=== PATIENT | female | born 1940 | race Caucasian/White ===

== ENCOUNTER → 2017-11-21 09:44 | Outpatient (CLI) | payer MEDICARE, OTHER, SELFPAY ==
[2017-11-21 10:34] LABS: Absolute Neutrophil Count 2.8 X10^3/uL (2.0-7.7); Basophil# 0.02 X10^3/uL; Basophil% 0.4 % (0-1); Eosinophil# 0.11 X10^3/uL; Eosinophils% 2.4 % (0-5); Hematocrit 43.2 % (37-47); Hemoglobin 13.9 g/dl (12.0-15.0); Lymphocyte % 24.3 % (19-41); Mean Corp Hgb Conc 32.2 g/gl (32-36); Mean Corpuscular Hgb 28.7 pg (27.0-32.0); Mean Corpuscular Volume 89.3 fL (81-99); Mean Platelet Vol. 10.5 fl (6.2-12.0); Monocyte# 0.52 X10^3/uL; Monocyte% 11.5 % (0-10); Neutrophil # 2.77 X10^3/uL (2.7-7.7); Neutrophil % 61.4 % (47-70); Platelet Count 242 K/mm3 (150-450); RBC Distribution Width CV 13.3 % (11.6-14.6); RBC Distribution Width SD 43.4 fl (35.1-43.9); Red Blood Count 4.84 M/mm3 (4.2-5.4); White Blood Count 4.5 K/mm3 (4.4-11.0)
[2017-11-21 10:36] LABS: POSITIVE COUNT NO; POSITIVE DIFFERENTIAL NO; POSITIVE MORPHOLOGY NO
[2017-11-21 11:08] LABS: AST(SGOT) 21 U/L (15-37); Alanine Aminotransfer ALT/SGPT 20 U/L (13-56); Albumin, Serum 3.6 g/dL (3.2-5.0); Alkaline Phosphatase 87 U/L (45-117); Anion Gap 7 (5-15); BUN 12 mg/dL (7-18); BUN/Creat Ratio 23.8 RATIO (10-20); Calcium,Total 8.5 mg/dL (8.5-10.1); Chloride 105 mmol/L (98-107); Cholesterol 215 mg/dL (200); EST Glomerular Filtration Rate 125 mL/min (>60); Est Glom Filt Rate - Afr Amer 151 mL/min (>60); Globulin 3.7 g/dL (2.2-4.2); Glucose 88 mg/dL (74-106); High Density Lipoprotein 55 mg/dL; Protein, Total 7.3 g/dL (6.4-8.2); Sodium Level 140 mmol/L (136-145); Thyroid Stim Hormone (TSH) 2.64 uIU/mL (0.358-3.74); Triglycerides 123 mg/dL; Very Low Density Lipoprotein 25 mg/dL (5-40)
== END ==
PROVIDERS: Family Provider Nurse Practitioner; PCP Nurse Practitioner; Visit Provider Nurse Practitioner
DX: I10 Essential (primary) hypertension (principal); E03.9 Hypothyroidism, unspecified
CPT/HCPCS: 36415; 80053; 80061; 84443; 85025

== ENCOUNTER → 2020-04-01 09:44 | Outpatient (CLI) | payer MEDICARE, OTHER, SELFPAY ==
[2020-03-17 15:29] VITALS: BMI 26.9
--- NOTE | 2020-04-01 09:45 | ECHOD_ITS ---
Reason For Study: AFIB Procedure This was a 2D Doppler, Color Flow transthoracic echocardiogram. The exam was of adequate technical quality. Exam performed in department. Left Ventricle Normal LV size. Moderate concentric left ventricular hypertrophy. Left ventricular systolic function is normal. The estimated ejection fraction is 65 %. Unable to assess diastolic dysfunction. No regional wall motion abnormalities noted. Right Ventricle Normal RV size. Normal systolic function. Atria The left atrium is mildly enlarged. The right atrium is mildly enlarged. No doppler evidence for ASD. Mitral Valve There is no mitral annular calcification. Normal mitral valve. Mild (1+) mitral valve insufficiency. Tricuspid Valve Normal tricuspid valve. Mild to moderate (1-2+) tricuspid valve insufficiency. Right ventricular systolic pressure estimated to be 44 mmHg. Aortic Valve Trisinus/trileaflet aortic valve. Mild focal aortic valve calcification. Pulmonic Valve The pulmonic valve is not well visualized. Mild (1+) pulmonic valve insufficiency. Great Vessels Normal sized aortic root. Pericardium/Pleural Trivial pericardial effusion. There are no echocardiographic indications of cardiac tamponade. MMode/2D Measurements & Calculations LVIDd: 4.1 cm IVSd: 1.5 cm Ao root diam: 3.6 cm LVIDs: 3.0 cm LVPWd: 1.5 cm RVDd: 3.2 cm FS: 27.4 % LAV(MOD-bp): 50.5 ml EDV(MOD-sp4): 53.8 ml EDV(MOD-sp2): 42.9 ml LAV(MOD-bp) Indexed: 33.4 ml/m2 ESV(MOD-sp4): 23.9 ml EF(MOD-sp2): 56.5 % LAV(MOD-sp2): 40.5 ml EF(MOD-sp4): 55.6 % LAV(MOD-sp4): 52.8 ml SV(MOD-sp4): 29.9 ml SV(MOD-sp2): 24.3 ml LA A4 area: 19.3 cm2 LA dimension(2D): 3.7 cm RA A4 area: 18.1 cm2 Time Measurements MV dec time: 0.18 sec Doppler Measurements & Calculations MV E max muna: 111.2 cm/sec Ao V2 max: 140.4 cm/sec LV V1 max: 100.0 cm/sec Ao max P.9 mmHg LV V1 max P.1 mmHg PA V2 max: 80.6 cm/sec PI end-d muna: 163.6 cm/sec TR max muna: 320.3 cm/sec TR max P.1 mmHg Interpretation Summary Left ventricular systolic function is normal. The estimated ejection fraction is 65 %. Moderate concentric left ventricular hypertrophy. The left atrium is mildly enlarged. The right atrium is mildly enlarged. Mild (1+) mitral valve insufficiency. Mild to moderate (1-2+) tricuspid valve insufficiency. Mild focal aortic valve calcification. Mild (1+) pulmonic valve insufficiency. Trivial pericardial effusion. There are no echocardiographic indications of cardiac tamponade. Right ventricular systolic pressure estimated to be 44 mmHg. Unable to assess diastolic dysfunction. Ordering Physician: Margarito Ramon Referring Physician: TERRANCE CORONA Performed By: Myrna Davis, THANH, RVT
== END ==
PROVIDERS: PCP Nurse Practitioner; Referring Provider Internal Medicine Cardiovascular Disease; Visit Provider Internal Medicine Cardiovascular Disease
DX: I25.10 Atherosclerotic heart disease of native coronary artery without angina pectoris (principal); I48.91 Unspecified atrial fibrillation; I48.92 Unspecified atrial flutter; I49.1 Atrial premature depolarization; I10 Essential (primary) hypertension
CPT/HCPCS: 93306

== ENCOUNTER 2020-04-19 09:55 | Day surgery (SDC) | payer MEDICARE, OTHER, SELFPAY ==
[2020-03-17 15:29] VITALS: BMI 26.9
--- NOTE | 2020-04-17 09:36 | PCM.HP.BLA ---
History and Physical Date of Admission: 04/19/20 History of Present Illness This is an 79-year-old white female who presents for a cardioversion. She was recently noted to be in Atrial fib during an OV. She has a history of CAD with chronic RCA occlusion with [id number] collateral flow, hyperlipidemia, and hypertension with her last outpatient cardiovascular visit being on 07-24-2017 who is now found to be in atrial fibrillation. She states on Mother's Day this year she had an episode where she felt somewhat dizzy and lightheaded. She is unsure whether she noted any palpitations or rapid heart rates. She does not recall any other chest discomfort or difficulty breathing. She states because of her cardiovascular history she elected to request future outpatient cardiovascular follow-up. She does not describe any symptoms of ongoing angina pectoris. She does not describe symptoms of acute CHF or pulmonary edema. There has been no syncopal events. Intake VS: see chart Allergies lisinopril Adverse Reaction (Verified 03/17/20 15:35) cough valsartan [From Diovan] Adverse Reaction (Verified 03/17/20 15:35) cough FOR[facility] Medical History Sinus bradycardia (Acute) Premature atrial contraction (Acute) Essential hypertension (Chronic) Atherosclerotic heart disease of [place] coronary artery without angina pectoris (Chronic) History of left heart catheterization (LHC) (Resolved ~06/09/14) Surgical History History of tonsillectomy and adenoidectomy (Resolved) Family History Father Myocardial infarction, Onset Age: 67 Social History Smoking Status: Never smoker alcohol intake: never substance use type: does not use ROS Const Const: Negative for fatigue, weakness, frequent falls, excessive sweating, weight gain or weight loss Eyes Eyes: Negative for transient loss of vision, blurry vision or change in vision ENT ENT: Negative for dizziness or balance problems Cardio Chest Pain: No Palpitations: No Edema: None Resp Respiratory: Positive for SOB with activity (baseline) and wheezing (occasional); negative for SOB at rest GI GI: Negative vomiting or vomiting blood/hematemesis : Negative for hematuria Musc Musc: Negative for balance problems Skin Skin: Negative non-healing lesions or rash Neuro Neuro: Negative for dizziness, frequent falls, weakness or blurry vision Kwasi Hematologic/Lymphatic: Negative for easy bleeding Endo Endo: Negative for fatigue or excessive sweating Psych Psych: Negative for anxiety or depression Allergy Allergy/Immunology: Negative for rash Cardiology Exam Const Appearance: cooperative, healthy appearing, comfortable, well developed and well groomed Nutritional Appearance: overweight Orientation: alert, awake and oriented x3 Head Head: normal to inspection, normocephalic and atraumatic Ears: hearing grossly normal bilaterally Nose: external nose normal Face and Sinus: face symmetric Eyes Eyelids: eyelids normal Conjunctivae: conjunctivae normal Pupils: PERRL EOM: EOM intact bilaterally Neck Neck: normal visual inspection and full ROM Carotids: normal carotid upstroke Chest Chest inspection: normal inspection of the chest, symmetric chest movement and normal respiratory effort Auscultation: Bilateral: Clear to Auscultation Cardio Palpation: normal PMI Rhythm: irregular rhythm Heart sounds: S1 normal and S2 normal GI GI: normal to inspection, soft and bowel sounds present Neuro General: alert, awake, oriented x3 and moves all extremities Skin Skin: no rashes or lesions noted Extremities Pulses: Normal: Right Radial Pulse, Left Radial Pulse Lower Extremity Edema: None: Bilateral Musculoskel Musculoskeletal: joint tenderness Psych Psychological: normal affect Assessment & Plan Plan - JAQUELIN Ramirez 1. Atherosclerosis of [place] coronary artery of [place] heart without angina pectoris I25.10 Plan She does have a history of CAD. She does need to continue risk factor modification and medical management as deemed appropriate. 2. PAC (premature atrial contraction) I49.1 Plan She does have a history of PACs. Again she will continue medical management and follow-up. 3. Essential hypertension I10 Plan She does have a history of hypertension. She will continue medical therapy and follow-up with adjustment over time as needed. 4. Atrial fibrillation, unspecified type I48.91 Plan Pt will undergo a cardioversion today. She will follow up in the office accordinglly after. She will continue with her Beta Rosie and factior Xa. Supplemental Info Supplemental Information Echocardiogram: 03/2020: Left ventricular systolic function is normal. The estimated ejection fraction is 65 %. Moderate concentric left ventricular hypertrophy. The left atrium is mildly enlarged. The right atrium is mildly enlarged. Mild (1+) mitral valve insufficiency. Mild to moderate (1-2+) tricuspid valve insufficiency. Mild focal aortic valve calcification. Mild (1+) pulmonic valve insufficiency. Trivial pericardial effusion. There are no echocardiographic indications of cardiac tamponade. Right ventricular systolic pressure estimated to be 44 mmHg. Unable to assess diastolic dysfunction. EXERCISE TOLERANCE TEST: 05-04-2014 The patient underwent pharmacologic (regadenoson) evaluation with a peak heart rate of 103 beats per minute (71% predicted maximum heart rate) with a peak blood pressure of 208/100 mmHg. The baseline ECG demonstrated sinus bradycardia with nonspecific T-wave abnormality. The peak pharmacologic ECG demonstrated continued nonspecific T-wave abnormality. There was a rare PAC during recovery. There was no report of chest discomfort during pharmacologic infusion or recovery. The examination was discontinued secondary to completion of protocol. IMPRESSION: 1. Pharmacologic (regadenoson) evaluation. 2. Peak pharmacologic ECG with continued nonspecific T-wave abnormality. 3. Rare PAC during recovery. 4. Nuclear images pending. MYOCARDIAL PERFUSION IMAGING STUDY: TECHNIQUE: The patient was injected with 11.2 mCi of Tc99m Cardiolite and subsequently rest SPECT Cardiolite nuclear imaging was obtained in the horizontal long, vertical long, and short axes views. The patient underwent pharmacologic (regadenoson) evaluation with a peak heart rate of 103 beats per minute (71% predicted maximum heart rate) and a peak blood pressure of 208/100 mmHg. The patient was injected with 31.4 mCi of Tc99m Cardiolite and subsequently stress SPECT Cardiolite nuclear imaging was obtained in the horizontal long, vertical long, and short axes views. A gated Cardiolite study at peak stress was obtained. INTERPRETATION: Rest and stress SPECT Cardiolite nuclear imaging demonstrate an area of diminished to absence of tracer uptake in portions of the basal inferoseptal and basal inferior segments. This appears to be somewhat more prominent following stress as opposed to rest. There are similar type findings on the resting and stress polar map images. There is diminished end systolic thickening and brightening in the aforementioned segments. The gated Cardiolite study demonstrates diminished myocardial thickening and inward wall motion in the aforementioned segments. The reported LVEF is 60%. The aforementioned changes maybe compatible with shifting soft tissue attenuation/artifact, however, an element of previous myocardial injury/infarction with periinfarct related myocardial ischemia cannot necessarily be excluded. IMPRESSION: 1. Rest and stress SPECT Cardiolite nuclear imaging demonstrate myocardial perfusion changes potentially compatible with an element of previous myocardial injury/infarction with periinfarct related myocardial ischemia, however, an element of shifting soft tissue attenuation/artifact cannot necessarily be excluded. 2. The gated Cardiolite study reports an LVEF of 60%. On 06-09-2014 she underwent diagnostic cardiac catheterization at [facility]. At that time the left ventricle was normal with an LVEF of 65% with notation of the basal inferior segment being akinetic, the left main coronary was normal, the LAD was normal, the LCx was normal, the RCA was large and dominant with a proximal occlusion with the distal RCA system filling from left to right collateral flow. She was continued on medical management. COVID (Procedure Consent) Procedure Criteria: Yes Elective The surgeon/proceduralist and patient have discussed in detail the risk of exposure to and/or potential harm posed by the COVID-19 virus with having a surgery/procedure at this time versus the risk of delaying the surgery/procedure. It is not possible to know either the risk of delaying the surgery or procedure or chance of getting an infection with perfect accuracy, but a joint decision was made between the patient and the surgeon/proceduralist to proceed at this time with the scheduled surgery/procedure as indicated on the consent form.
[2020-04-18 11:05] VITALS: BMI 26.9
--- NOTE | 2020-04-19 11:00 | HP.PCM_ITS ---
Problem List (1) Atrial fibrillation Status: Acute History and Physical Date of Admission: 04/19/20 [facility] [place] Medical Records Department [address] [place] [address] History and Physical 04/17/20 0936 MR#: [id number] Acct: [id number] Name: POLLO SÁNCHEZ Rep #:[id number] : 1940 79 From: Leslie HAMMER PCP: RENU Lockwood [place] [facility] [place] [facility] History and Physical Date of Admission: 04/19/20 History of Present Illness This is an 79-year-old white female who presents for a cardioversion. She was recently noted to be in Atrial fib during an OV. She has a history of CAD with chronic RCA occlusion with [id number] collateral flow, hyperlipidemia, and hypertension with her last outpatient cardiovascular visit being on 07-24-2017 who is now found to be in atrial fibrillation. She states on Mother's Day this year she had an episode where she felt somewhat dizzy and lightheaded. She is unsure whether she noted any palpitations or rapid heart rates. She does not recall any other chest discomfort or difficulty breathing. She states because of her cardiovascular history she elected to request future outpatient cardiovascular follow-up. She does not describe any symptoms of ongoing angina pectoris. She does not describe symptoms of acute CHF or pulmonary edema. There has been no syncopal events. Intake VS: see chart Allergies lisinopril Adverse Reaction (Verified 03/17/20 15:35) cough valsartan [From Diovan] Adverse Reaction (Verified 03/17/20 15:35) cough PFSH Medical History Sinus bradycardia (Acute) Premature atrial contraction (Acute) Essential hypertension (Chronic) Atherosclerotic heart disease of [place] coronary artery without angina pectoris (Chronic) History of left heart catheterization (LHC) (Resolved ~06/09/14) Surgical History History of tonsillectomy and adenoidectomy (Resolved) Family History Father Myocardial infarction, Onset Age: 67 Social History Smoking Status: Never smoker alcohol intake: never substance use type: does not use ROS Const Const: Negative for fatigue, weakness, frequent falls, excessive sweating, weight gain or weight loss Eyes Eyes: Negative for transient loss of vision, blurry vision or change in vision ENT ENT: Negative for dizziness or balance problems Cardio Chest Pain: No Palpitations: No Edema: None Resp Respiratory: Positive for SOB with activity (baseline) and wheezing (occasional); negative for SOB at rest GI GI: Negative vomiting or vomiting blood/hematemesis : Negative for hematuria Musc Musc: Negative for balance problems Skin Skin: Negative non-healing lesions or rash Neuro Neuro: Negative for dizziness, frequent falls, weakness or blurry vision Kwasi Hematologic/Lymphatic: Negative for easy bleeding Endo Endo: Negative for fatigue or excessive sweating Psych Psych: Negative for anxiety or depression Allergy Allergy/Immunology: Negative for rash Cardiology Exam Const Appearance: cooperative, healthy appearing, comfortable, well developed and well groomed Nutritional Appearance: overweight Orientation: alert, awake and oriented x3 Head Head: normal to inspection, normocephalic and atraumatic Ears: hearing grossly normal bilaterally Nose: external nose normal Face and Sinus: face symmetric Eyes Eyelids: eyelids normal Conjunctivae: conjunctivae normal Pupils: PERRL EOM: EOM intact bilaterally Neck Neck: normal visual inspection and full ROM Carotids: normal carotid upstroke Chest Chest inspection: normal inspection of the chest, symmetric chest movement and normal respiratory effort Auscultation: Bilateral: Clear to Auscultation Cardio Palpation: normal PMI Rhythm: irregular rhythm Heart sounds: S1 normal and S2 normal GI GI: normal to inspection, soft and bowel sounds present Neuro General: alert, awake, oriented x3 and moves all extremities Skin Skin: no rashes or lesions noted Extremities Pulses: Normal: Right Radial Pulse, Left Radial Pulse Lower Extremity Edema: None: Bilateral Musculoskel Musculoskeletal: joint tenderness Psych Psychological: normal affect Assessment & Plan Plan - JAQUELIN Ramirez 1. Atherosclerosis of [place] coronary artery of [place] heart without angina pectoris I25.10 Plan She does have a history of CAD. She does need to continue risk factor modification and medical management as deemed appropriate. 2. PAC (premature atrial contraction) I49.1 Plan She does have a history of PACs. Again she will continue medical management and follow-up. 3. Essential hypertension I10 Plan She does have a history of hypertension. She will continue medical therapy and follow-up with adjustment over time as needed. 4. Atrial fibrillation, unspecified type I48.91 Plan Pt will undergo a cardioversion today. She will follow up in the office accordinglly after. She will continue with her Beta Rosie and factior Xa. Supplemental Info Supplemental Information Echocardiogram: 03/2020: Left ventricular systolic function is normal. The estimated ejection fraction is 65 %. Moderate concentric left ventricular hypertrophy. The left atrium is mildly enlarged. The right atrium is mildly enlarged. Mild (1+) mitral valve insufficiency. Mild to moderate (1-2+) tricuspid valve insufficiency. Mild focal aortic valve calcification. Mild (1+) pulmonic valve insufficiency. Trivial pericardial effusion. There are no echocardiographic indications of cardiac tamponade. Right ventricular systolic pressure estimated to be 44 mmHg. Unable to assess diastolic dysfunction. EXERCISE TOLERANCE TEST: 05-04-2014 The patient underwent pharmacologic (regadenoson) evaluation with a peak heart rate of 103 beats per minute (71% predicted maximum heart rate) with a peak blood pressure of 208/100 mmHg. The baseline ECG demonstrated sinus bradycardia with nonspecific T-wave abnormality. The peak pharmacologic ECG demonstrated continued nonspecific T- wave abnormality. There was a rare PAC during recovery. There was no report of chest discomfort during pharmacologic infusion or recovery. The examination was discontinued secondary to completion of protocol. IMPRESSION: 1. Pharmacologic (regadenoson) evaluation. 2. Peak pharmacologic ECG with continued nonspecific T-wave abnormality. 3. Rare PAC during recovery. 4. Nuclear images pending. MYOCARDIAL PERFUSION IMAGING STUDY: TECHNIQUE: The patient was injected with 11.2 mCi of Tc99m Cardiolite and subsequently rest SPECT Cardiolite nuclear imaging was obtained in the horizontal long, vertical long, and short axes views. The patient underwent pharmacologic (regadenoson) evaluation with a peak heart rate of 103 beats per minute (71% predicted maximum heart rate) and a peak blood pressure of 208/100 mmHg. The patient was injected with 31.4 mCi of Tc99m Cardiolite and subsequently stress SPECT Cardiolite nuclear imaging was obtained in the horizontal long, vertical long, and short axes views. A gated Cardiolite study at peak stress was obtained. INTERPRETATION: Rest and stress SPECT Cardiolite nuclear imaging demonstrate an area of diminished to absence of tracer uptake in portions of the basal inferoseptal and basal inferior segments. This appears to be somewhat more prominent following stress as opposed to rest. There are similar type findings on the resting and stress polar map images. There is diminished end systolic thickening and brightening in the aforementioned segments. The gated Cardiolite study demonstrates diminished myocardial thickening and inward wall motion in the aforementioned segments. The reported LVEF is 60%. The aforementioned changes maybe compatible with shifting soft tissue attenuation/artifact, however, an element of previous myocardial injury/infarction with periinfarct related myocardial ischemia cannot necessarily be excluded. IMPRESSION: 1. Rest and stress SPECT Cardiolite nuclear imaging demonstrate myocardial perfusion changes potentially compatible with an element of previous myocardial injury/infarction with periinfarct related myocardial ischemia, however, an element of shifting soft tissue attenuation/artifact cannot necessarily be ex cluded. 2. The gated Cardiolite study reports an LVEF of 60%. On 06-09-2014 she underwent diagnostic cardiac catheterization at [facility]. At that time the left ventricle was normal with an LVEF of 65% with notation of the basal inferior segment being akinetic, the left main coronary was normal, the LAD was normal, the LCx was normal, the RCA was large and dominant with a proximal occlusion with the distal RCA system filling from left to right collateral flow. She was continued on medical management. COVID (Procedure Consent) Procedure Criteria: Yes Elective The surgeon/proceduralist and patient have discussed in detail the risk of exposure to and/or potential harm posed by the COVID-19 virus with having a surgery/procedure at this time versus the risk of delaying the surgery/procedure. It is not possible to know either the risk of delaying the surgery or procedure or chance of getting an infection with perfect accuracy, but a joint decision was made between the patient and the surgeon/proceduralist to proceed at this time with the scheduled surgery/procedure as indicated on the consent form. Date _ Leslie Martinez Signature: Date (if applicable) I have re-examined the patient. There are no clinical changes since date of exam.
--- NOTE | 2020-04-19 12:00 | CARDIOVERS_ITS ---
Cardioversion Cardioversion: Date: 04-19-2020 Procedure: Synchronized Biphasic DC Cardioversion Indications: Atrial fibrillation Consent: Per the Patient Anesthesia: per Dr. Martinez of pulmonology and critical care medicine with profile 40 mg IV push total Procedure: Synchronized Biphasic DC Cardioversion: 200 J x1: Result: Sinus rhythm; PACs Complications: no apparent complications This note was generated with [employer] software. It may contain incorrect words, spelling, and punctuation that were not noted in checking the note before signing.
--- NOTE | 2020-04-19 12:30 | PCM.OP.PRO ---
Problem List (1) Atrial fibrillation Status: Acute (2) Premature atrial contraction Status: Acute (3) Atherosclerotic heart disease of [place] coronary artery without angina pectoris Status: Chronic Qualifiers: [place] vs. transplanted heart: [place] heart Qualified Code(s): I25.10 - Atherosclerotic heart disease of [place] coronary artery without angina pectoris (4) Cholecystitis Status: Chronic (5) Essential hypertension Status: Chronic (6) Hypothyroidism Status: Chronic Procedure Report Date of Procedure: 04/19/20 - Conscious sedation CONSCIOUS SEDATION REPORT BRIEF HISTORY OF PRESENT ILLNESS: The patient is an 79-year-old female who presented to [facility] for an elective outpatient cardioversion due to underlying atrial fibrillation. The patient reports no PO intake since midnight. The patient does not have a history of obstructive sleep apnea. The patient reports no history of smoking and COPD. The patient denies any recent constitutional symptoms such as fevers, chills, nausea or vomiting. The patient denies previous anesthetic complications. Patient's last known ejection fraction was 65% and patient took Eliquis on the day of the procedure. PHYSICAL EXAMINATION: VITAL SIGNS: Reviewed and were acceptable. GENERAL: The patient is a female, in no apparent distress, speaking in full sentences. HEENT: Normocephalic, atraumatic. Mucous membranes are moist and pink. Good mouth opening noted. Trachea is midline. Good neck mobility. MP II CHEST: S1, S2 irregularly irregular. No murmurs, rubs or gallops were noted. LUNGS: Clear to auscultation bilaterally without appreciable wheezes, rales or rhonchi. ABDOMEN: Soft, nontender, nondistended. Positive bowel sounds. EXTREMITIES: There is no clubbing, cyanosis or edema. ASA Class: II DESCRIPTION OF PROCEDURE: After confirmation of informed consent, the patient's anesthesia plan was reviewed in detail. Propofol was chosen. Risks and benefits were reviewed and the patient agreed to proceed. At 11:42 AM, the patient was given 40 mg of propofol. The patient achieved an appropriate level of sedation and received 1 attempt synchronized cardioversion, at [address] Ramon at the bedside. This was successful in achieving normal sinus rhythm. The patient was monitored until 11:54 AM, at which time the patient reached their baseline mental status and function. The patient tolerated the procedure well. COMPLICATIONS: None ESTIMATED BLOOD LOSS: None RECOMMENDATIONS: Okay to recover in usual fashion. [id number]: Other Procedure See Report - [id number]
== END 2020-04-19 13:24 | disposition home or self-care (01) ==
LOC: CLSP 09:58
PROVIDERS: PCP Nurse Practitioner; Referring Provider Internal Medicine Cardiovascular Disease; Visit Provider Internal Medicine Cardiovascular Disease
DX: I48.91 Unspecified atrial fibrillation (principal); I25.10 Atherosclerotic heart disease of native coronary artery without angina pectoris; I49.1 Atrial premature depolarization; I11.9 Hypertensive heart disease without heart failure; I08.1 Rheumatic disorders of both mitral and tricuspid valves; E78.5 Hyperlipidemia, unspecified; E03.9 Hypothyroidism, unspecified
CPT/HCPCS: 92960; 93005; J7040

== ENCOUNTER → 2022-05-09 | Outpatient (CLI) | payer MEDICARE, OTHER, SELFPAY | END | disposition home or self-care (01) | PROVIDERS: PCP Nurse Practitioner; Visit Provider Nurse Practitioner Family | DX: R30.0 Dysuria (principal) | CPT/HCPCS: 87086; 87088 ==

== ENCOUNTER → 2022-12-19 | Outpatient (CLI) | payer MEDICARE, SELFPAY | END | disposition home or self-care (01) | LOC: PSN 11:40 | PROVIDERS: PCP Nurse Practitioner Family; Visit Provider Nurse Practitioner Gerontology | DX: R00.0 Tachycardia, unspecified (principal); I48.0 Paroxysmal atrial fibrillation; I49.1 Atrial premature depolarization | CPT/HCPCS: 93225; 93226 ==

== ENCOUNTER → 2022-12-25 | Outpatient (CLI) | payer MEDICARE, SELFPAY ==
--- NOTE | 2022-12-25 16:40 | RAD_ITS ---
STUDY: X-RAY CHEST REASON FOR EXAM: Female, 82 years old. Cough and wheezing. TECHNIQUE: Frontal and lateral views of the chest. COMPARISON: August 2017. FINDINGS: Improved aeration of both bases since the prior study. Patchy opacity in the right middle lobe remains. There is no demonstrated pleural abnormality. Cardiomegaly unchanged. Normal mediastinum and claudia. Normal visualized pulmonary arteries. Aortic tortuosity with calcification unchanged. Normal visualized thoracic spine. Normal visualized ribs, clavicles, and shoulders. There is no demonstrated abnormality of the visualized soft tissue structures of the upper abdomen. RAD/Chest PA and Lateral IMPRESSION: Cardiomegaly with decreased opacities at both bases. Patchy right middle lobe opacity remains. No acute abnormality. Electronically Signed: Edwardo Kumar, at 10:58 EDT ,
== END | disposition home or self-care (01) ==
LOC: MTRAD 16:36
PROVIDERS: PCP Nurse Practitioner Family; Referring Provider Nurse Practitioner Family; Visit Provider Nurse Practitioner Family
DX: R05.9 Cough, unspecified (principal); R06.2 Wheezing
CPT/HCPCS: 71046

== ENCOUNTER → 2023-02-16 | Outpatient (CLI) | payer MEDICARE, SELFPAY ==
--- NOTE | 2023-02-16 12:01 | RAD_ITS ---
ACR Level 3 findings have been noted. An addendum which confirms receipt of the report will follow. INDICATION: SOB AND COUGH X SEVERAL MO EXAMINATION/TECHNIQUE: X-RAY - XR Chest 2 Views COMPARISON: 12/25/2022 FINDINGS: LINES/DEVICES: None. LUNGS: Patchy airspace opacity in the right lower lung field with new nodular opacity along the left heart border in the lower lung field. No consolidations or pleural effusions. No vascular congestion. MEDIASTINUM AND CARDIOVASCULAR STRUCTURES: Stable cardiomegaly. BONES AND SOFT TISSUES: No acute changes. RAD/Chest PA and Lateral IMPRESSION: Patchy infiltrate in the right lower lung field. Possible pulmonary nodule versus nodular infiltrate along the left heart border. Recommend short-term follow-up for resolution. If no resolution within clinically expected time frame follow-up chest CT with contrast is recommended. Electronically Signed: Thuan Price MD at 17:47 EDT ,
== END | disposition home or self-care (01) ==
LOC: RAD 11:56
PROVIDERS: PCP Nurse Practitioner Family; Referring Provider Nurse Practitioner Family; Visit Provider Nurse Practitioner Family
DX: R06.02 Shortness of breath (principal); R05.9 Cough, unspecified
CPT/HCPCS: 71046

== ENCOUNTER → 2023-03-15 | Outpatient (CLI) | payer MEDICARE, SELFPAY ==
--- NOTE | 2023-03-15 15:11 | CT_ITS ---
EXAM: CT chest with contrast HISTORY: ABN CHEST XRAY TECHNIQUE: CT Chest W/ Contrast Injection A radiation dose optimization technique was used for this scan. Multiplanar reconstructions were obtained. 3-D postprocessing was performed. COMPARISON: CTA chest August 28, 2017. Chest x-ray February 16, 2023 LIMITATIONS: None. LUNGS: Small patchy irregular opacities are present bilaterally. Atelectasis/scarring is in the lingula which accounts for the nodular opacity described in the prior chest x-ray report. No suspicious pulmonary nodules identified. PULMONARY VESSELS: No pulmonary emboli identified. PLEURA: Normal. MEDIASTINUM: Calcified mediastinal and hilar lymph nodes are evidence of prior granulomatous disease.. HEART: Mildly enlarged. Trace pericardial effusion. AORTA: No thoracic aortic aneurysm or dissection. UPPER ABDOMEN: Calcified splenic granulomata. A 1.2 cm left adrenal nodule is similar in size to the prior exam and measures 40 Hounsfield units. BONES/SOFT TISSUES: No acute fracture. OTHER: None. CONCLUSION: Small patchy irregular opacities bilaterally likely represent atelectasis/scarring. Superimposed mild infection is a consideration in the appropriate clinical setting. Nodular opacity in the lingula represents atelectasis/scarring and accounts for the chest x-ray abnormality. No suspicious pulmonary nodules. 1.2 cm indeterminate adrenal nodule. Electronically Signed: Hardy Conte MD at 23:49 EDT , CT/Chest WITH Contrast IMPRESSION: undefined
[2023-03-15 15:27] LABS: CREATININE FINGERSTICK 0.9 mg/dL (0.55-1.02); EGFR FINGERSTICK > 60.0000 mL/min (>60)
== END | disposition home or self-care (01) ==
LOC: CT 14:50
PROVIDERS: PCP Nurse Practitioner Family; Referring Provider Nurse Practitioner Family; Visit Provider Nurse Practitioner Family
DX: R91.8 Other nonspecific abnormal finding of lung field (principal)
CPT/HCPCS: 71260; Q9967; A4216

== ENCOUNTER → 2023-04-16 | Outpatient (CLI) | payer MEDICARE, SELFPAY ==
--- NOTE | 2023-04-16 13:04 | PFTCOMP_ITS ---
COMPLETE PULMONARY FUNCTION TEST INTERPRETATION Brief HPI: Patient is an 82-year-old female, currently under the care of myself, who presents to [facility] for complete pulmonary function tests secondary to diagnosis of chronic cough. Respiratory therapist reports good effort and reproducible results. Interpretation: Forced expiration spirometry shows a mild large airways obstructive ventilatory defect with an FEV1 of 83% predicted. There is a significant bronchodilator response in FEV1 by strict ATS criteria. Spirograms are of good quality and plateau slowly, indicating slowly emptying areas of the lungs. The respiratory flow volume loop shows decreased expiratory flow rates at high lung volumes consistent with small airways obstruction. Lung volumes by body plethysmography show a normal total lung capacity at 3.46 L, 88% predicted. All other lung volumes are within normal limits. Diffusion capacity by carbon monoxide is normal at 76% predicted. The airway resistance is elevated. No previous pulmonary function tests were available for review. Impression: Partially reversible mild large airways obstructive ventilatory defect with preserved lung volumes and diffusion capacity
== END | disposition home or self-care (01) ==
LOC: PSN 10:37
PROVIDERS: PCP Nurse Practitioner Family; Referring Provider Internal Medicine Critical Care Medicine; Visit Provider Internal Medicine Critical Care Medicine
DX: R05.3 Chronic cough (principal)
CPT/HCPCS: 94060; 94726; 94729

== ENCOUNTER → 2023-06-18 | Outpatient (CLI) | payer MEDICARE, SELFPAY ==
[2023-06-18 14:16] LABS: Absolute Neutrophil Count 3.5 X10^3/uL (2.0-7.7); Basophil# 0.04 X10^3/uL; Basophil% 0.8 % (0-1); Eosinophil# 0.05 X10^3/uL; Hematocrit 44.2 % (37-47); Hemoglobin 14.4 g/dL (12.0-15.0); Lymphocyte % 21.3 % (19-41); Mean Corp Hgb Conc 32.6 g/dL (32-36); Mean Corpuscular Hgb 29.3 pg (27.0-32.0); Mean Corpuscular Volume 89.8 fL (81-99); Mean Platelet Vol. 10.8 fl (6.2-12.0); Monocyte# 0.48 X10^3/uL; Monocyte% 9.3 % (0-10); NRBC Flagged by Analyzer 0 % (0-5); Neutrophil # 3.47 X10^3/uL (2.7-7.7); Neutrophil % 67.2 % (47-70); Platelet Count 239 K/mm3 (150-450); RBC Distribution Width CV 13.5 % (11.6-14.6); RBC Distribution Width SD 44.3 fl (35.1-43.9); Red Blood Count 4.92 M/mm3 (4.2-5.4); White Blood Count 5.2 K/mm3 (4.4-11.0)
[2023-06-18 14:50] LABS: Anion Gap 6 (5-15); BUN 15 mg/dL (7-18); BUN/Creat Ratio 19.2 RATIO (10-20); Calcium,Total 9.3 mg/dL (8.5-10.1); Chloride 105 mmol/L (98-107); Creatinine, Serum 0.78 mg/dL (0.55-1.02); EST Glomerular Filtration Rate 74 mL/min (>60); Est Glom Filt Rate - Afr Amer 90 mL/min (>60); Glucose 136 mg/dL (74-106); Potassium 3.8 mmol/L (3.5-5.1); Sodium Level 140 mmol/L (136-145); Thyroid Stim Hormone (TSH) 2.06 uIU/mL (0.358-3.74)
== END | disposition home or self-care (01) ==
LOC: LAB 13:28
PROVIDERS: PCP Nurse Practitioner Family; Referring Provider Physician Assistant Medical; Visit Provider Physician Assistant Medical
DX: I48.0 Paroxysmal atrial fibrillation (principal); I10 Essential (primary) hypertension; I25.10 Atherosclerotic heart disease of native coronary artery without angina pectoris; R42 Dizziness and giddiness; R06.09 Other forms of dyspnea
CPT/HCPCS: 36415; 80048; 83880; 84443; 85025

== ENCOUNTER → 2023-07-16 | Outpatient (CLI) | payer MEDICARE, SELFPAY ==
--- NOTE | 2023-07-16 07:08 | ECHOD_ITS ---
Reason For Study: DYSPNEA Procedure This was a 2D Doppler, Color Flow transthoracic echocardiogram. Exam performed in department. Left Ventricle Normal LV size. The estimated ejection fraction is 60 %. Infero-Basal: Akinetic. There are regional wall motion abnormalities as specified. Right Ventricle Normal RV size. Normal systolic function. Mitral Valve Normal mitral valve. Mild (1+) eccentric mitral valve insufficiency. Tricuspid Valve Normal tricuspid valve. Moderate (2+) tricuspid valve insufficiency. Pulmonary artery systolic pressure is 64 mmHg. Aortic Valve Trisinus/trileaflet aortic valve. Mild (1+) aortic valve insufficiency. Pulmonic Valve Normal pulmonic valve. Mild (1+) pulmonic valve insufficiency. Great Vessels Normal aortic root. Pericardium/Pleural No pericardial effusion. MMode/2D Measurements & Calculations LVIDd: 3.3 cm IVSd: 1.6 cm Ao root diam: 3.4 cm LVIDs: 2.6 cm LVPWd: 1.4 cm FS: 22.6 % LAV(MOD-bp): 57.8 ml LVAd ap4: 17.7 cm2 SV(MOD-sp4): 24.6 ml LAV(MOD-bp) Indexed: 38.6 ml/m2 LVLd ap4: 6.4 cm LAV(MOD-sp2): 75.2 ml EDV(MOD-sp4): 41.2 ml LAV(MOD-sp4): 44.4 ml EDV(sp4-el): 41.1 ml LVAs ap4: 9.8 cm2 LVLs ap4: 5.6 cm ESV(MOD-sp4): 16.6 ml ESV(sp4-el): 14.6 ml EF(MOD-sp4): 59.7 % EF(sp4-el): 64.5 % SV(sp4-el): 26.5 ml LA dimension(2D): 4.0 cm LA A4 area: 18.3 cm2 RA A4 area: 18.3 cm2 TAPSE: 1.1 cm Doppler Measurements & Calculations MV E max muna: 90.4 cm/sec MV V2 max: 127.4 cm/sec Ao V2 max: 126.7 cm/sec MV max P.5 mmHg Ao max P.4 mmHg MV V2 mean: 67.2 cm/sec Ao V2 mean: 88.8 cm/sec MV mean P.2 mmHg Ao mean P.6 mmHg MV V2 VTI: 25.5 cm Ao V2 VTI: 26.7 cm AV (velocity ratio): 0.74 AI max muna: 396.1 cm/sec LV V1 max: 107.8 cm/sec PA V2 max: 98.0 cm/sec AI max P.7 mmHg LV V1 max P.7 mmHg PA V2 mean: 75.9 cm/sec LV V1 mean P.6 mmHg AI dec slope: 185.1 cm/sec2 LV V1 mean: 74.9 cm/sec AI P1/2t: 626.8 msec LV V1 VTI: 19.7 cm TR max muna: 382.2 cm/sec TR max P.4 mmHg ECHO/Echo Complete Interpretation Summary The estimated ejection fraction is 60 %. Normal LV size. There are regional wall motion abnormalities as specified. Infero-Basal: Akinetic. Mild (1+) eccentric mitral valve insufficiency. Mild (1+) aortic valve insufficiency. Ordering Physician: Leslie Infante Referring Physician: Leslie Infante Performed By: Genesis Russell RCS
--- NOTE | 2023-07-16 17:45 | STRESSREP ---
Stress Test Report Pharmacologic myocardial perfusion stress test. 82-year-old lady with a history of coronary artery disease Resting EKG demonstrates atrial fibrillation with a rate of 100 bpm. Resting blood pressure is 160/90 mmHg. 0.4 mg of regadenoson was infused per usual protocol followed by rapid intravenous saline flush injection. Continuous EKG monitoring was performed. The maximum heart rate was 142 bpm which was 104% of max impacted heart rate the maximum workload was 1 metabolic equivalent. At rest there were no ST or T wave changes noted to suggest ischemia and at peak infusion nonspecific ST changes were noted which did not meet the criteria for ischemia. No clinical angina is noted. The final blood pressure was 150/82 mmHg. Myocardial perfusion protocol. 11 mCi of technetium 99m sestamibi was injected at rest. 0.4 mg of regadenoson was infused per usual protocol. At peak infusion 33 mCi of technetium 99m sestamibi was injected stress images were obtained stress and rest images were reconstructed and compared in the short axis vertical long and horizontal long axis. Gated images were also obtained. Perfusion SPECT analysis: Review of the stress images demonstrate normal uptake of tracer noted in all areas of the myocardium except for a medium size zone in the mid inferior and inferolateral segment with a perfusion defect. The resting images similar demonstrated normal uptake of tracer noted in all areas of the myocardium except for the same area. The above is suggestive of a previous inferior inferolateral infarct. No significant ischemia is noted. Gated SPECT analysis: The gated ejection fraction is 67%. Conclusion: Pharmacologic myocardial perfusion stress test with no ischemia noted. Previous inferolateral infarct present. Preserved ejection fraction.
== END | disposition home or self-care (01) ==
LOC: CVS 07:06
PROVIDERS: PCP Nurse Practitioner Family; Referring Provider Physician Assistant Medical; Visit Provider Physician Assistant Medical
DX: I48.0 Paroxysmal atrial fibrillation (principal); I25.10 Atherosclerotic heart disease of native coronary artery without angina pectoris; I10 Essential (primary) hypertension; R06.09 Other forms of dyspnea; R42 Dizziness and giddiness
CPT/HCPCS: 78452; 93017; 93306; A9500; A4216; J2785

== ENCOUNTER 2023-08-28 17:48 | Emergency (ER) | payer MEDICARE, SELFPAY ==
[2023-08-28 17:49] VITALS: BP 180/95; PULSE 111; RESP 16; TEMP 36.4; O2SAT 96; BMI 25.7
--- NOTE | 2023-08-28 17:56 | RAD_ITS ---
STUDY: X-RAY - RIGHT HAND REASON FOR EXAM: Female, 82 years old. Swelling TECHNIQUE: 3 view(s) of the hand. COMPARISON: None. FINDINGS: Normal radiocarpal articulation. Normal distal radioulnar joint. Normal visualized carpal bones. Normal carpal articulations Normal carpometacarpal articulation of the thumb. Normal second through fifth carpometacarpal joints. Normal metacarpi. Normal metacarpophalangeal joint of the thumb. Normal interphalangeal joint of the thumb. Normal proximal and distal phalanges of the thumb. There is degenerative arthrosis of the metacarpophalangeal (MCP) joints. There is calcification adjacent to the second and the peak drain. There is diffuse articular joint space narrowing of the proximal and distal interphalangeal joints of the second through fifth fingers, with spurring and small cysts. Normal phalanges of the second through fifth fingers. The soft tissue structures are unremarkable. There is no acute fracture seen. RAD/Hand Min 3 Views IMPRESSION: Degenerative joint disease of the hand, as described above. Electronically Signed: Alexander Goldsmith MD at 18:26 EST ,
[2023-08-28 19:00] VITALS: BP 166/86; PULSE 116; RESP 16; TEMP 36.4; O2SAT 96
[2023-08-28 19:52] VITALS: BP 171/103; PULSE 89; RESP 20; O2SAT 96
--- NOTE | 2023-08-28 20:07 | EX.ED.UPPERE ---
HPI History of Present Illness HPI Narrative: Patient presents with redness and swelling to her right hand that began several days ago. Patient states he started having some pain approximately week and a half ago. Patient states her pain is constant. Patient describes it as burning and throbbing. Patient states it is worse with movement. Patient admits to some weakness in her hand but states it is due to the pain. Patient denies any paresthesias. Patient denies any trauma or injury. Patient denies any fevers or chills. Chief Complaint: Upper Extremity Injury Informant: patient and family Onset/Context/Timing Onset: Days Context: Gradual Onset Timing: Continuous Quality of Pain: Burning and Throbbing Worsened by: Movement Relieved by: Nothing Associated Symptoms Associated Symptoms: Negative for Parasthesia, Weakness or Loss of Funtion PFSH [facility] Medical History Atherosclerotic heart disease of [place] coronary artery without angina pectoris Atrial fibrillation Essential hypertension History of left heart catheterization (LHC) (~06/09/14) Polyneuropathy, unspecified Premature atrial contraction Sinus bradycardia Vitamin D deficiency Home Medications levothyroxine 75 mcg tablet 75 mcg PO DAILY thyroid 06/08/14 [History Last Taken 08/27/17 22:00 75 MCG] vitamin B complex (Super B-50 Complex capsule) 1 cap PO DAILY 12/07/20 [History Last Taken Unknown] turmeric root extract 500 mg capsule 500 mg PO DAILY 04/05/21 [History Last Taken Unknown] apixaban 2.5 mg tablet (Eliquis) 2.5 mg PO BID #180 tabs 01/10/22 [Rx Last Taken Unknown] dietary supplement 1 tab PO DAILY 03/20/23 [History Last Taken Unknown] amlodipine 2.5 mg tablet 2.5 mg PO DAILY #90 tabs 04/12/23 [Rx Last Taken Unknown] carvedilol 3.125 mg tablet 3.125 mg PO DAILY blood pressure/heart #90 tabs 04/12/23 [Rx Last Taken Unknown] losartan 25 mg tablet 12.5 mg (1/2 x 25 mg) PO DAILY blood pressure #90 tabs 06/17/23 [Rx Last Taken Unknown] furosemide 20 mg tablet (Lasix) 20 mg PO DAILY PRN edema #90 tabs 07/17/23 [Rx Last Taken Unknown] cephalexin 500 mg capsule 500 mg PO Q6 #40 CAPSULES 08/28/23 [Rx Last Taken Unknown] Allergy/AdvReac Type Severity Reaction Status Date / Time lisinopril AdvReac cough Verified 06/18/23 11:27 valsartan [From Diovan] AdvReac cough Verified 06/18/23 11:27 Family History Father Myocardial infarction, Onset Age: 67 Mother Cancer Surgical History History of cardioversion (~04/19/20) History of cholecystectomy (08/26/17) History of tonsillectomy and adenoidectomy Social History Smoking Status: Never smoker alcohol intake: current alcohol intake frequency: holidays/special occasions only substance use type: does not use ROS ROS ED Constitutional Constitutional ED: Denies chills or fever(s) Eyes Eyes: Denies blurry vision or change in vision ENT ENT ED: Denies rhinorrhea or sore throat Cardiovascular Cardiovascular: Denies chest pain or palpitations Respiratory/Chest Respiratory/Chest: Denies cough or dyspnea Gastrointestinal Gastrointestinal: Denies nausea or vomiting Genitourinary Genitourinary ED: Denies dysuria or hematuria Musculoskeletal Musculoskeletal: Denies back pain or neck pain Integumentary Denies abscess or rash Neurologic Neurologic: Denies headache(s) or weakness Allergic/Immunologic Allergic/Immunologic ED: Denies mouth swelling or urticaria EXAM Physical Exam Const Vital Signs: 08/28/23 17:49 Temperature 97.5 F L Temperature Source Temporal Pulse Rate 111 H Respiratory Rate 16 Blood Pressure 180/95 H Blood Pressure Mean 123 Pulse Ox 96 Oxygen Delivery Method Room Air Positive well nourished and well developed General Appearance ED: well developed and NAD HEENT Reports moist mucous membranes normocephalic Neck full ROM and supple Resp normal respiratory effort and clear to auscultation bilaterally Cardio regular rate and regular rhythm GI non-tender and non-distended Palpation: soft Extremity Extremity Narrative: There is tenderness, edema, and erythema over the dorsal aspect of the right hand extending into the third proximal phalanx. There is mild warmth. There is no discharge or drainage. There is no evidence of any abscess. There are no vesicles or pustules noted. There are no petechia noted. Sensation was intact to light touch in the radial, median, and ulnar areas. Strength is 5/5 in the radial, median, and ulnar areas. Capillary refill was less than 2 seconds in all digits. Radial pulses are equal bilaterally. General Extremety ED: Yes edema General Extremity: edema Neuro oriented x3, CN's II-XII intact bilaterally, moves all extremities, no focal motor deficits and no sensory deficits noted Sensorium / Orientation: alert Motor Exam: strength 5/5 throughout Psych mental status grossly normal MDM MDM MDM Narrative Medical decision making narrative: Differential diagnosis includes cellulitis, osteomyelitis, and occult fracture. X-rays of the left hand will be obtained to assess for occult fracture and osteomyelitis. CBC will be obtained to assess for leukocytosis and anemia. Basic metabolic profile will be obtained to assess for electrolyte abnormality and renal function. Lactate will be obtained to assess for sepsis. Blood cultures will be obtained to assess for sepsis. Lab Data Attestation: I reviewed the patient's lab results. Lab results narrative: CBC was reviewed and was within normal limits. Basic metabolic profile was reviewed. Potassium was slightly low at 3.3. Glucose was slightly elevated at 119. Remainder is within normal limits. Lactate was reviewed and was normal at 0.9. Radiography Diagnostic Testing: Clinical Impression(s) from Imaging Studies Hand X-Ray 08/28/23 17:56 IMPRESSION: Degenerative joint disease of the hand, as described above. Electronically Signed: Alexander Goldsmith MD at 18:26 [facility] , X-rays of the right hand were obtained. There are 3 views. On my independent interpretation, there is no acute fracture. There are some degenerative changes noted. There is no evidence of osteomyelitis. Radiologist also interpreted the x-rays and agrees. Treatment and Re-Evaluation Narrative: Patient was given a dose of Ancef here. Patient and family were advised of her findings. Patient was given a prescription for Keflex. Patient was instructed to keep her hand elevated. Patient was instructed to follow-up with her primary care physician in 5 to 7 days. Patient was instructed to take Tylenol or ibuprofen as needed for pain. Patient and family understood and were agreeable with the plan. All questions were answered. Discharge Plan Triage Chief Complaint: Upper Extremity Injury ED Provider: Figueroa Tucker Dx/Rx/DC Orders Clinical Impression: Cellulitis of right hand, Essential hypertension Instructions: ED Cellulitis Prescriptions: New cephalexin [cephalexin] 500 mg capsule 500 mg PO Q6 Qty: 40 0RF No Action turmeric root extract 500 mg capsule 500 mg PO DAILY vitamin B complex [Super B-50 Complex] Capsule 1 cap PO DAILY dietary supplement Tablet 1 tab PO DAILY Rx Instructions: Strong lung furosemide [Lasix] 20 mg tablet 20 mg PO DAILY PRN (Reason: edema) Qty: 90 3RF levothyroxine 75 MCG tablet 75 mcg PO DAILY Patient Comments: choose one day a week to not take Eliquis 2.5 mg tablet 2.5 mg PO BID Qty: 180 3RF carvedilol 3.125 mg tablet 3.125 mg PO DAILY Qty: 90 3RF amlodipine 2.5 mg tablet 2.5 mg PO DAILY Qty: 90 3RF losartan 25 mg tablet 12.5 mg PO DAILY Qty: 90 3RF Primary Care Provider: Taisha Doyle Referrals: Taisha Doyle NP-C [Primary Care Provider] - 5-7 Days Disposition Disposition: Home, Self Care
[2023-08-28 20:25] LABS: Absolute Lymphocyte Count 0.91 X10^3/uL (0.83-4.51); Absolute Neutrophil Count 6.5 X10^3/uL (2.0-7.7); Basophil# 0.03 X10^3/uL; Basophil% 0.4 % (0-1); Eosinophil# 0.01 X10^3/uL; Eosinophils% 0.1 % (0-5); Hematocrit 43.1 % (37-47); Hemoglobin 14.2 g/dL (12.0-15.0); Lymphocyte # 0.91 X10^3/ul (0.83-4.51); Lymphocyte % 10.8 % (19-41); Mean Corp Hgb Conc 32.9 g/dL (32-36); Mean Corpuscular Hgb 29.5 pg (27.0-32.0); Mean Corpuscular Volume 89.4 fL (81-99); Mean Platelet Vol. 10.5 fl (6.2-12.0); Monocyte% 11.9 % (0-10); NRBC Flagged by Analyzer 0 % (0-5); Neutrophil # 6.45 X10^3/uL (2.7-7.7); Neutrophil % 76.6 % (47-70); Platelet Count 250 K/mm3 (150-450); RBC Distribution Width CV 12.5 % (11.6-14.6); RBC Distribution Width SD 41.1 fl (35.1-43.9); Red Blood Count 4.82 M/mm3 (4.2-5.4); White Blood Count 8.4 K/mm3 (4.4-11.0)
[2023-08-28 20:46] LABS: Anion Gap 5 (5-15); BUN 13 mg/dL (7-18); BUN/Creat Ratio 15.3 RATIO (10-20); Chloride 104 mmol/L (98-107); Creatinine, Serum 0.85 mg/dL (0.55-1.02); EST Glomerular Filtration Rate 68 mL/min (>60); Est Glom Filt Rate - Afr Amer 82 mL/min (>60); Estimated Creatinine Clearance 44.95 ml/min; Glucose 119 mg/dL (74-106); Potassium 3.3 mmol/L (3.5-5.1); Sodium Level 137 mmol/L (136-145)
[2023-08-28 20:50] LABS: Lactic Acid 0.9 mmol/L (0.4-1.9)
[2023-08-28] MEDS: Cefazolin 1 GM/50 ML BAG IV (20:58)
[2023-08-28 21:00] VITALS: BP 166/86; PULSE 116; RESP 16; O2SAT 96
[2023-08-28 22:27] VITALS: BP 168/95; PULSE 105; RESP 16; O2SAT 96
== END 2023-08-28 22:28 | disposition home or self-care (01) ==
PROVIDERS: Emergency Provider Emergency Medicine; PCP Nurse Practitioner Family; Visit Provider Emergency Medicine
DX: L03.113 Cellulitis of right upper limb (principal); I25.10 Atherosclerotic heart disease of native coronary artery without angina pectoris; I10 Essential (primary) hypertension; Z79.899 Other long term (current) drug therapy
CPT/HCPCS: 73130; 80048; 83605; 85025; 87040; 96360; 99283; J7050; A4216

== ENCOUNTER 2023-09-19 11:53 | Emergency (ER) | payer MEDICARE, SELFPAY ==
[2023-09-19 11:54] VITALS: BP 135/88; PULSE 100; RESP 18; TEMP 36.3; O2SAT 97; BMI 25.8
--- NOTE | 2023-09-19 14:59 | EDS_ITS ---
HPI History of Present Illness Chief Complaint: Cellulitis Informant: patient and family Narrative Narrative: Patient presents with concern for recurrent cellulitis of right hand. Patient was seen on 28 August. She was started on 10 days of cephalexin. She had extensive blood work blood cultures and x-rays at that time. All of which showed no major abnormality. She states the redness and swelling and warmth went down and symptoms had resolved. She has been off of antibiotics for over 10 days. The last day or 2 it started to come back a little bit. But she states it does not hurt. She has no fevers or chills. She does not feel at all ill. She had a follow-up appointment but she canceled it because she was better. She has no trauma to the area. [facility] Medical History Atherosclerotic heart disease of [place] coronary artery without angina pectoris Atrial fibrillation Essential hypertension History of left heart catheterization (LHC) (~06/09/14) Polyneuropathy, unspecified Premature atrial contraction Sinus bradycardia Vitamin D deficiency Home Medications levothyroxine 75 mcg tablet 75 mcg PO DAILY thyroid 06/08/14 [History Last Taken 08/27/17 22:00 75 MCG] vitamin B complex (Super B-50 Complex capsule) 1 cap PO DAILY 12/07/20 [History Last Taken Unknown] turmeric root extract 500 mg capsule 500 mg PO DAILY 04/05/21 [History Last Taken Unknown] apixaban 2.5 mg tablet (Eliquis) 2.5 mg PO BID #180 tabs 01/10/22 [Rx Last Taken Unknown] dietary supplement 1 tab PO DAILY 03/20/23 [History Last Taken Unknown] amlodipine 2.5 mg tablet 2.5 mg PO DAILY #90 tabs 04/12/23 [Rx Last Taken Unknown] carvedilol 3.125 mg tablet 3.125 mg PO DAILY blood pressure/heart #90 tabs 04/12/23 [Rx Last Taken Unknown] losartan 25 mg tablet 12.5 mg (1/2 x 25 mg) PO DAILY blood pressure #90 tabs 06/17/23 [Rx Last Taken Unknown] furosemide 20 mg tablet (Lasix) 20 mg PO DAILY PRN edema #90 tabs 07/17/23 [Rx Last Taken Unknown] cephalexin 500 mg capsule 500 mg PO Q6 #40 CAPSULES 08/28/23 [Rx Last Taken Unknown] doxycycline monohydrate 100 mg capsule 100 mg PO BID #20 CAPSULES 09/19/23 [Rx Last Taken Unknown] Allergy/AdvReac Type Severity Reaction Status Date / Time lisinopril AdvReac cough Verified 06/18/23 11:27 valsartan [From Diovan] AdvReac cough Verified 06/18/23 11:27 Family History Father Myocardial infarction, Onset Age: 67 Mother Cancer Surgical History History of cardioversion (~04/19/20) History of cholecystectomy (08/26/17) History of tonsillectomy and adenoidectomy Social History household members: none housing: house current occupational status: retired Smoking Status: Never smoker alcohol intake: current alcohol intake frequency: holidays/special occasions only substance use type: does not use ROS ROS ED Constitutional Constitutional ED: Denies chills, fever(s), subjective or sweats Cardiovascular Cardiovascular: Denies chest pain Respiratory/Chest Respiratory/Chest: Denies cough or dyspnea Gastrointestinal Gastrointestinal: Denies nausea or vomiting Musculoskeletal Musculoskeletal: Reports other Details: Swelling of the dorsum of the right hand no other Integumentary Reports rash; Denies abscess Neurologic Neurologic: Denies headache(s), paresthesias or weakness Hematologic/Lymphatic Hematologic/Lymphatic: Reports easy bleeding and easy bruising; Denies lymphadenopathy Allergic/Immunologic Allergic/Immunologic ED: Denies urticaria EXAM Physical Exam Narrative Exam Narrative: General: Patient awake alert no acute distress. She is making jokes the entire time in the room. Very nontoxic. HEENT shows no trauma. Mucous membranes are moist. Neck is supple. Cardiorespiratory shows easy unlabored breathing regular heart rate and saturations are normal at 97% on room air showing no hypoxia. Abdomen is nontender. Extremity: Patient does have a little bit of swelling of the dorsum of her right hand. It really involves all the fingers. But the volar surface looks totally normal. I can move each individual joint without any difficulty or pain. The daughter states it was very warm last night but that today it is not as warm. There is no lymphangitic streaking. I do not feel any proximal lymphadenopathy. No involvement of her left hand at all. Const Vital Signs: 09/19/23 11:54 Temperature 97.3 F L Temperature Source Temporal Pulse Rate 100 Respiratory Rate 18 Blood Pressure 135/88 H Blood Pressure Mean 103 Pulse Ox 97 Oxygen Delivery Method Room Air MDM MDM MDM Narrative Medical decision making narrative: Patient has used some new shampoo recently but she uses it with both hands and I doubt that is the cause. I do not think she needs extensive neurowork-up. I think there is a component of infection but I am wondering if there is a background rheumatologic issue that is contributing to this. Since she responded so well to antibiotics I will start antibiotics again. We will pick doxycycline to get slightly different coverage. We have encouraged her to follow-up with her physician even if this is getting better. Discharge Plan Triage Chief Complaint: Cellulitis ED Provider: Rickie Costello Dx/Rx/DC Orders Clinical Impression: Cellulitis of hand, right Instructions: ED Cellulitis Prescriptions: New doxycycline monohydrate 100 mg capsule 100 mg PO BID Qty: 20 0RF No Action turmeric root extract 500 mg capsule 500 mg PO DAILY vitamin B complex [Super B-50 Complex] Capsule 1 cap PO DAILY dietary supplement Tablet 1 tab PO DAILY Rx Instructions: Strong lung furosemide [Lasix] 20 mg tablet 20 mg PO DAILY PRN (Reason: edema) Qty: 90 3RF levothyroxine 75 MCG tablet 75 mcg PO DAILY Patient Comments: choose one day a week to not take cephalexin [cephalexin] 500 mg capsule 500 mg PO Q6 Qty: 40 0RF Eliquis 2.5 mg tablet 2.5 mg PO BID Qty: 180 3RF carvedilol 3.125 mg tablet 3.125 mg PO DAILY Qty: 90 3RF amlodipine 2.5 mg tablet 2.5 mg PO DAILY Qty: 90 3RF losartan 25 mg tablet 12.5 mg PO DAILY Qty: 90 3RF Primary Care Provider: Taisha Doyle Referrals: Taisha Doyle, [employer] [Primary Care Provider] - 1 Week Disposition Disposition: Home, Self Care
== END 2023-09-19 15:21 | disposition home or self-care (01) ==
LOC: ED 15:12
PROVIDERS: Emergency Provider Emergency Medicine; PCP Nurse Practitioner Family; Visit Provider Emergency Medicine
DX: L03.113 Cellulitis of right upper limb (principal); I48.91 Unspecified atrial fibrillation; I25.10 Atherosclerotic heart disease of native coronary artery without angina pectoris; I10 Essential (primary) hypertension; Z79.01 Long term (current) use of anticoagulants; Z79.899 Other long term (current) drug therapy
CPT/HCPCS: 99282

== ENCOUNTER → 2023-09-20 | Outpatient (CLI) | payer MEDICARE, SELFPAY ==
[2023-09-20 13:28] LABS: Absolute Lymphocyte Count 0.79 X10^3/uL (0.83-4.51); Absolute Neutrophil Count 5.7 X10^3/uL (2.0-7.7); Basophil# 0.02 X10^3/uL; Basophil% 0.3 % (0-1); Eosinophil# 0.03 X10^3/uL; Eosinophils% 0.4 % (0-5); Hematocrit 40.6 % (37-47); Hemoglobin 13.6 g/dL (12.0-15.0); Lymphocyte # 0.79 X10^3/ul (0.83-4.51); Lymphocyte % 10.8 % (19-41); Mean Corp Hgb Conc 33.5 g/dL (32-36); Mean Corpuscular Hgb 30.2 pg (27.0-32.0); Mean Corpuscular Volume 90.2 fL (81-99); Mean Platelet Vol. 10.7 fl (6.2-12.0); Monocyte% 9.6 % (0-10); NRBC Flagged by Analyzer 0 % (0-5); Neutrophil # 5.74 X10^3/uL (2.7-7.7); Neutrophil % 78.6 % (47-70); Platelet Count 231 K/mm3 (150-450); RBC Distribution Width CV 12.7 % (11.6-14.6); White Blood Count 7.3 K/mm3 (4.4-11.0)
[2023-09-20 14:00] LABS: ALB/GLOB Ratio 0.7 RATIO (0.9-2.4); AST(SGOT) 21 U/L (15-37); Alanine Aminotransfer ALT/SGPT 23 U/L (13-56); Albumin, Serum 3.1 g/dL (3.2-5.0); Alkaline Phosphatase 69 U/L (45-117); Anion Gap 6 (5-15); BUN 15 mg/dL (7-18); Calcium,Total 8.8 mg/dL (8.5-10.1); Chloride 107 mmol/L (98-107); Creatinine, Serum 0.94 mg/dL (0.55-1.02); EST Glomerular Filtration Rate 60 mL/min (>60); Est Glom Filt Rate - Afr Amer 73 mL/min (>60); Globulin 4.2 g/dL (2.2-4.2); Glucose 107 mg/dL (74-106); Potassium 3.6 mmol/L (3.5-5.1); Protein, Total 7.3 g/dL (6.4-8.2); Sodium Level 142 mmol/L (136-145); Uric Acid 4.8 mg/dL (2.6-6.0)
== END | disposition home or self-care (01) ==
LOC: MTLAB 11:58
PROVIDERS: PCP Nurse Practitioner Family; Referring Provider Nurse Practitioner Family; Visit Provider Nurse Practitioner Family
DX: L03.113 Cellulitis of right upper limb (principal)
CPT/HCPCS: 36415; 80053; 83605; 84550; 85025

== ENCOUNTER 2023-09-22 11:34 | Emergency (ER) | payer MEDICARE, SELFPAY ==
[2023-09-22 11:36] VITALS: BP 170/102; PULSE 104; RESP 16; TEMP 37; O2SAT 98; BMI 25.7
--- NOTE | 2023-09-22 11:53 | ED.RN ---
pt started on doxycline on 09/19/23 for cellulitis of right hand. hand normal in appearance. no redness or warmth noted. daughter states pt is breathing irregularly, no irregular breathing noted. reports temps of 100-101 degrees at home. temp normal at 98.8.
--- NOTE | 2023-09-22 11:55 | EDS_ITS ---
HPI History of Present Illness Chief Complaint: Fever Informant: patient and family Onset/Context/Timing Onset: Today Current Severity: Mild Maximum Severity: Mild Narrative Narrative: 83-year-old female history of CAD, A-fib on Eliquis recently has had right upper extremity hand and forearm cellulitis currently she is on doxycycline. Today thought she might have a fever when the thermometer at home registered 100.4 but was afebrile here. Minimal cough. No shortness of breath. No abdominal pain. No nausea, vomiting or diarrhea. The right hand swelling and redness is resolved. No dysuria. No other rashes. Patient went to the urgent care who sent her here. Prior similar symptoms: Yes Recent Illness/Hospitalization: No [facility] Medical History Atherosclerotic heart disease of [place] coronary artery without angina pectoris Atrial fibrillation Essential hypertension History of left heart catheterization (LHC) (~06/09/14) Polyneuropathy, unspecified Premature atrial contraction Sinus bradycardia Vitamin D deficiency Home Medications levothyroxine 75 mcg tablet 75 mcg PO DAILY thyroid 06/08/14 [History Last Taken 08/27/17 22:00 75 MCG] vitamin B complex (Super B-50 Complex capsule) 1 cap PO DAILY 12/07/20 [History Last Taken Unknown] turmeric root extract 500 mg capsule 500 mg PO DAILY 04/05/21 [History Last Take n Unknown] apixaban 2.5 mg tablet (Eliquis) 2.5 mg PO BID #180 tabs 01/10/22 [Rx Last Taken Unknown] dietary supplement 1 tab PO DAILY 03/20/23 [History Last Taken Unknown] amlodipine 2.5 mg tablet 2.5 mg PO DAILY #90 tabs 04/12/23 [Rx Last Taken Unknown] carvedilol 3.125 mg tablet 3.125 mg PO DAILY blood pressure/heart #90 tabs 04/12/23 [Rx Last Taken Unknown] losartan 25 mg tablet 12.5 mg (1/2 x 25 mg) PO DAILY blood pressure #90 tabs 06/17/23 [Rx Last Taken Unknown] furosemide 20 mg tablet (Lasix) 20 mg PO DAILY PRN edema #90 tabs 07/17/23 [Rx Last Taken Unknown] cephalexin 500 mg capsule 500 mg PO Q6 #40 CAPSULES 08/28/23 [Rx Last Taken Unknown] doxycycline monohydrate 100 mg capsule 100 mg PO BID #20 CAPSULES 09/19/23 [Rx Last Taken Unknown] Allergy/AdvReac Type Severity Reaction Status Date / Time lisinopril AdvReac cough Verified 06/18/23 11:27 valsartan [From Diovan] AdvReac cough Verified 06/18/23 11:27 Family History Father Myocardial infarction, Onset Age: 67 Mother Cancer Surgical History History of cardioversion (~04/19/20) History of cholecystectomy (08/26/17) History of tonsillectomy and adenoidectomy Social History household members: none housing: house current occupational status: retired Smoking Status: Never smoker alcohol intake: current alcohol intake frequency: holidays/special occasions only substance use type: does not use ROS ROS ED ROS Narrative Fever. Minimal cough. Review of Systems ROS Unobtainable: Denies due to encephalopathy Constitutional Constitutional ED: Reports fever(s); Denies chills Eyes Eyes: Denies blurry vision ENT ENT ED: Denies ear pain Cardiovascular Cardiovascular: Denies chest pain Respiratory/Chest Respiratory/Chest: Reports cough Gastrointestinal Gastrointestinal: Denies abdominal pain, constipation, diarrhea, melena, nausea or vomiting Genitourinary Genitourinary ED: Denies dysuria or hematuria Musculoskeletal Musculoskeletal: Denies arthralgias or back pain Integumentary Denies abscess Neurologic Neurologic: Denies headache(s) Psychiatric Psychiatric: Denies anxiety or depression Hematologic/Lymphatic Hematologic/Lymphatic: Reports none Allergic/Immunologic Allergic/Immunologic ED: Denies mouth swelling, tongue swelling or urticaria EXAM Physical Exam Narrative Exam Narrative: Well-appearing 83-year-old female. Vital signs currently are stable and afebrile. She does not look septic or toxic. She is in no distress. Current temperature is 98.6. H EENT exam unremarkable. Moist mucous membranes. Neck nontender no lymphadenopathy. Lungs clear to auscultation bilaterally. Heart A-fib rate about 100. Abdomen soft and nontender. Normal bowel sounds no peritoneal signs. Moving all 4 extremities. 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 No septic joint. Normal flexion extension. No lymphangitic streaking. No axillary lymphadenopathy. Skin otherwise is unremarkable. Neurologically she is awake and alert with no focal motor deficits. Const Vital Signs: 09/22/23 11:36 09/22/23 11:48 Temperature 98.6 F Temperature Source Temporal Pulse Rate 104 H Respiratory Rate 16 Respiratory Pattern Normal Blood Pressure 170/102 H Blood Pressure Mean 124 Pulse Ox 98 Oxygen Delivery Method Room Air Positive well nourished and well developed; Negative for cachectic, contractures or unkempt General Appearance ED: well developed and NAD; Negative for unkempt, cachectic, contractures, cyanotic, diaphoretic or pallor Nutritional Appearance: Negative for cachectic HEENT Reports moist mucous membranes Negative for trauma or tenderness Eyes PERRL and EOMs intact bilaterally General Eye ED: Negative for pale conjunctiva, scleral icterus or other Neck no lymphadenopathy, supple and no JVD General: Negative for tenderness Lymph Lymphatic: Negative for other Chest Wall inspection of chest normal and palpation of chest normal Chest: Negative for other Resp normal respiratory effort and clear to auscultation bilaterally Effort and Inspection: Negative for retractions Auscultation: Negative for rales, rhonchi or wheezes Cardio S1 normal heart sound and S2 normal heart sound; Negative for regular rate or regular rhythm Rhythm: abnormal rhythm irregularly irregular and other (A-fib rate of about 100.) GI normal to inspection, nondistended, normoactive bowel sounds, non-tender, non- distended and no masses Inspection: Negative for abdominal distention Auscultation: normoactive bowel sounds Palpation: soft; Negative for tender or guarding Back/Spine no CVA tenderness General Back: Negative for CVA tenderness Cervical Spine: Negative for cervical spine tenderness Thoracic Spine / Upper Back: Negative for thoracic spinal tenderness or paraspinal muscle tenderness Lumbar Spine / Lower Back: Negative for lumbar spinal tenderness Extremity normal to inspection Extremity Narrative: Chronic arthritic changes in the hands. No cellulitis. General Extremety ED: Negative for edema or tenderness General Extremity: Negative for edema Neuro oriented x3 and CN's II-XII intact bilaterally Sensorium / Orientation: alert; Negative for orientation impaired, lethargic or stuporous Motor Exam: strength 5/5 throughout Psych mental status grossly normal Appearance: Negative for unkempt Attitude: No agitated Mood & Affect: Negative for depressed, anxious or tearful Skin no rashes or lesions noted, no wounds and skin turgor normal General Skin Exam: Negative for elasticity normal, jaundice or pallor Lesions: No lesion noted Rashes: No rashes noted Trauma: Negative for abrasion Wounds: Negative for wounds noted MDM MDM MDM Narrative Medical decision making narrative: 83-year-old female recent hand cellulitis which is resolved currently on antibiotics felt like she may have had a fever at home documented temperature of 100.4 and a thermometer. Here is afebrile and has not taken any antipyretics. Clinically looks well. Screening labs and blood cultures will be obtained. She does not look septic or toxic currently. Multiple repeat exam patient is doing well at 1:45 PM. We went over her test results. I think the fever she has now is from the influenza. Fluids and rest. Follow-up as needed. Return if worse. History & Record Review Discussion w/independent historian: Patient and Family Additional record(s) reviewed:: Prior inpatient record, Prior outpatient record, Prior ED visit and Prior labs Lab Data Attestation: I reviewed the patient's lab results. Lab results narrative: CBC shows a white count of 4.1. H&H 13 and 39. Platelets 184. Electrolytes show sodium 134. Potassium 3.3. Gap of 8. BUN 13 and creatinine 0.7. Glucose 121. COVID and RSV negative. Influenza A positive. Urinalysis negative. Labs: Laboratory Results - last 24 hr 09/22/23 09/22/23 12:15 13:05 WBC 4.1 L RBC 4.53 Hgb 13.2 Hct 39.8 MCV 87.9 MCH 29.1 MCHC 33.2 RDW Std Deviation 40.0 RDW Coeff of [place] 12.6 Plt Count 184 MPV 10.2 Immature Gran % (Auto) 0.200 Neut % (Auto) 73.6 H Lymph % (Auto) 7.3 L [place] % (Auto) 18.2 H Eos % (Auto) 0.2 Baso % (Auto) 0.5 Absolute Neuts (auto) 3.0 Absolute Lymphs (auto) 0.30 L Nucleated RBC % 0 Differential Comment SCANNED Diff Path Review May foll Sodium 134 L Potassium 3.3 L Chloride 99 Carbon Dioxide 27.0 Anion Gap 8 BUN 13 Creatinine 0.73 Estim Creat Clear Calc 36.23 Est GFR (MDRD) Af Amer 97 Est GFR (MDRD) Non-Af 80 BUN/Creatinine Ratio 17.7 Glucose 121 H Calcium 9.0 Urine Color Yellow Urine Clarity Clear Urine pH 7.0 Ur Specific [place] 1.010 Urine Protein Negative Urine Glucose (UA) Normal Urine Ketones Negative Urine Occult Blood Negative Urine Nitrite Negative Urine Bilirubin Negative Urine Urobilinogen Normal Ur Leukocyte Esterase Negative Urine RBC 0 SEEN Urine WBC 0 SEEN Ur Squamous Epith Cells 0 SEEN Urine Bacteria 0 SEEN Urine Mucus 0 SEEN Radiography Chest X-Ray - ED: 1 View, Read by ED Physician, Normal, Heart, Lungs, Mediastinum, Bony Structures and No Acute Disease Diagnostic Testing: Clinical Impression(s) from Imaging Studies Chest X-Ray 09/22/23 12:28 IMPRESSION: No acute cardiopulmonary process identified. Electronically Signed: Karina Bustos MD at 12:52 EST Reading Location ID and State: [facility] / [place] Tel , Service support , Chest x-ray, portable, single view, interpreted by myself shows no acute abnormality. Normal cardiac silhouette. Normal lung jett. No infiltrates. Discharge Plan Triage Chief Complaint: Fever ED Provider: Werner Gibbs Dx/Rx/DC Orders Clinical Impression: Influenza A, Fever, Chronic anticoagulation Instructions: ED Influenza (Adult) Prescriptions: No Action turmeric root extract 500 mg capsule 500 mg PO DAILY vitamin B complex [Super B-50 Complex] Capsule 1 cap PO DAILY dietary supplement Tablet 1 tab PO DAILY Rx Instructions: Strong lung furosemide [Lasix] 20 mg tablet 20 mg PO DAILY PRN (Reason: edema) Qty: 90 3RF levothyroxine 75 MCG tablet 75 mcg PO DAILY Patient Comments: choose one day a week to not take cephalexin [cephalexin] 500 mg capsule 500 mg PO Q6 Qty: 40 0RF doxycycline monohydrate 100 mg capsule 100 mg PO BID Qty: 20 0RF Eliquis 2.5 mg tablet 2.5 mg PO BID Qty: 180 3RF carvedilol 3.125 mg tablet 3.125 mg PO DAILY Qty: 90 3RF amlodipine 2.5 mg tablet 2.5 mg PO DAILY Qty: 90 3RF losartan 25 mg tablet 12.5 mg PO DAILY Qty: 90 3RF Primary Care Provider: Taisha Doyle Referrals: Taisha Doyle, [employer]ATOR-C [Primary Care Provider] - As Needed Activity Restrictions/Additional Instructions: You tested positive for influenza A. Plenty of fluids. Rest. Tylenol for the fever. Follow-up with your doctor as needed. Continue and finish the antibiotics you were written for for your prior cellulit is. Disposition Disposition: Home, Self Care
--- NOTE | 2023-09-22 12:28 | RAD_ITS ---
HISTORY: fever. TECHNIQUE: XR Chest 1 View. COMPARISON: 02/16/2023. FINDINGS: CARDIOMEDIASTINAL BORDERS: Cardiac silhouette and mediastinal contour unchanged with mild cardiomegaly, mild enlargement of the main pulmonary artery, and calcification of the aortic knob. LUNGS: Radiographically clear. PLEURA: No pleural effusion or pneumothorax seen. OSSEOUS STRUCTURES: Degenerative change. RAD/Chest 1 View (Portable) IMPRESSION: No acute cardiopulmonary process identified. Electronically Signed: Karina Bustos MD at 12:52 EST ,
[2023-09-22 12:35] LABS: Anion Gap 8 (5-15); BUN 13 mg/dL (7-18); BUN/Creat Ratio 17.7 RATIO (10-20); Chloride 99 mmol/L (98-107); Creatinine, Serum 0.73 mg/dL (0.55-1.02); EST Glomerular Filtration Rate 80 mL/min (>60); Est Glom Filt Rate - Afr Amer 97 mL/min (>60); Estimated Creatinine Clearance 36.23 ml/min; Glucose 121 mg/dL (74-106); Potassium 3.3 mmol/L (3.5-5.1); Sodium Level 134 mmol/L (136-145)
[2023-09-22 12:40] LABS: Basophil# 0.02 X10^3/uL; Basophil% 0.5 % (0-1); Eosinophil# 0.01 X10^3/uL; Eosinophils% 0.2 % (0-5); Hematocrit 39.8 % (37-47); Hemoglobin 13.2 g/dL (12.0-15.0); Lymphocyte % 7.3 % (19-41); Mean Corp Hgb Conc 33.2 g/dL (32-36); Mean Corpuscular Hgb 29.1 pg (27.0-32.0); Mean Corpuscular Volume 87.9 fL (81-99); Mean Platelet Vol. 10.2 fl (6.2-12.0); Monocyte# 0.75 X10^3/uL; Monocyte% 18.2 % (0-10); NRBC Flagged by Analyzer 0 % (0-5); Neutrophil # 3.03 X10^3/uL (2.7-7.7); Neutrophil % 73.6 % (47-70); POSITIVE DIFFERENTIAL YES; Platelet Count 184 K/mm3 (150-450); RBC Distribution Width CV 12.6 % (11.6-14.6); Red Blood Count 4.53 M/mm3 (4.2-5.4); White Blood Count 4.1 K/mm3 (4.4-11.0)
[2023-09-22 12:42] LABS: Differential Indicated SCAN CRITERIA MET
[2023-09-22 13:21] LABS: Bacteria 0 SEEN /hpf (None Seen); Mucous, Urine 0 SEEN /hpf (<or=2+); Red Blood Cells-Urine 0 SEEN /hpf (0-5); Squamous Epithelial Cells - UA 0 SEEN /hpf (5-10); White Blood Cells 0 SEEN /hpf (0-5)
[2023-09-22 13:23] LABS: Color, Urine Yellow (Yellow); Glucose, Dipstick Normal (Normal); Ketone-Dipstick Negative (Negative); Leukocyte Esterase-Dipstick Negative /ul (Negative); Nitrite-Dipstick Negative (Negative); Occult Blood-Urine Negative /ul (Negative); Protein-Dipstick Negative (Negative); Urine Bilirubin Dipstick Negative (Negative); Urine Clarity Clear (Clear); Urine Urobilinogen Normal (Normal)
[2023-09-22 13:34] LABS: Differential Comment SCANNED
[2023-09-22 13:50] VITALS: BP 145/89; PULSE 81; RESP 20; O2SAT 92
[2023-09-23 11:55] LABS: Pathologist Review Reviewed
== END 2023-09-22 13:51 | disposition home or self-care (01) ==
PROVIDERS: Emergency Provider Emergency Medicine; PCP Nurse Practitioner Family; Visit Provider Emergency Medicine
DX: J10.1 Influenza due to other identified influenza virus with other respiratory manifestations (principal); I48.91 Unspecified atrial fibrillation; I25.10 Atherosclerotic heart disease of native coronary artery without angina pectoris; I10 Essential (primary) hypertension; Z79.01 Long term (current) use of anticoagulants; Z79.899 Other long term (current) drug therapy
CPT/HCPCS: 71045; 80048; 81001; 85025; 87040; 87631; 99283; A4216

== ENCOUNTER → 2024-03-25 | Outpatient (CLI) | payer MEDICARE, SELFPAY ==
[2024-03-25 16:40] LABS: Absolute Lymphocyte Count 0.86 X10^3/uL (0.83-4.51); Absolute Neutrophil Count 3.2 X10^3/uL (2.0-7.7); Basophil# 0.02 X10^3/uL; Basophil% 0.4 % (0-1); Eosinophil# 0.04 X10^3/uL; Eosinophils% 0.9 % (0-5); Hematocrit 43.5 % (37-47); Hemoglobin 14.3 g/dL (12.0-15.0); Lymphocyte # 0.86 X10^3/ul (0.83-4.51); Lymphocyte % 18.9 % (19-41); Mean Corp Hgb Conc 32.9 g/dL (32-36); Mean Corpuscular Hgb 29.3 pg (27.0-32.0); Mean Corpuscular Volume 89.1 fL (81-99); Mean Platelet Vol. 11.2 fl (6.2-12.0); Monocyte# 0.47 X10^3/uL; Monocyte% 10.3 % (0-10); NRBC Flagged by Analyzer 0 % (0-5); Neutrophil # 3.15 X10^3/uL (2.7-7.7); Neutrophil % 69.3 % (47-70); Platelet Count 204 K/mm3 (150-450); RBC Distribution Width CV 13.2 % (11.6-14.6); RBC Distribution Width SD 42.8 fl (35.1-43.9); Red Blood Count 4.88 M/mm3 (4.2-5.4); White Blood Count 4.6 K/mm3 (4.4-11.0)
[2024-03-25 17:26] LABS: Anion Gap 6 (5-15); BUN 17 mg/dL (7-18); BUN/Creat Ratio 20.5 RATIO (10-20); Calcium,Total 9.4 mg/dL (8.5-10.1); Chloride 105 mmol/L (98-107); Creatinine, Serum 0.83 mg/dL (0.55-1.02); EST Glomerular Filtration Rate 69 mL/min (>60); Est Glom Filt Rate - Afr Amer 84 mL/min (>60); Glucose 94 mg/dL (74-106); Sodium Level 139 mmol/L (136-145)
[2024-03-25 17:27] LABS: BNP,B-Type NATRIURETIC PEPTIDE 358.1 pg/mL (0-100)
== END | disposition home or self-care (01) ==
LOC: LAB 15:30
PROVIDERS: PCP Nurse Practitioner Family; Referring Provider Nurse Practitioner Family; Visit Provider Nurse Practitioner Family
DX: R06.09 Other forms of dyspnea (principal); I48.0 Paroxysmal atrial fibrillation; I25.10 Atherosclerotic heart disease of native coronary artery without angina pectoris; I10 Essential (primary) hypertension
CPT/HCPCS: 36415; 80048; 83880; 85025

== ENCOUNTER 2024-05-03 10:08 | Emergency (ER) | payer MEDICARE, SELFPAY ==
[2024-05-03 10:08] VITALS: BP 202/100; PULSE 121; RESP 18; TEMP 35.8; O2SAT 97; BMI 24.4
--- NOTE | 2024-05-03 11:05 | RAD_ITS ---
EXAM: XR LEFT HIP WITH PELVIS WHEN PERFORMED, 2 OR 3 VIEWS CLINICAL INDICATION: fall, pain TECHNIQUE: Two or three views of the left hip with pelvis when performed. COMPARISON: No relevant prior studies available. FINDINGS: BONES/JOINTS: No acute abnormality. SOFT TISSUES: Normal. No soft tissue swelling or gas. OTHER FINDINGS: 4.7 cm calcified pelvic mass consistent with uterine fibroid. RAD/HIP, UNI W/ Pelvis 2-3 Views IMPRESSION: No acute findings in the pelvis or left hip. Electronically Signed: Hood Rubalcava MD at 11:49 EDT ,
--- NOTE | 2024-05-03 11:05 | RAD_ITS ---
EXAM: XR ABDOMEN, 1 VIEW CLINICAL INDICATION: constipation TECHNIQUE: Frontal supine view of the abdomen/pelvis. COMPARISON: No relevant prior studies available. FINDINGS: GASTROINTESTINAL TRACT: Mild to moderate stool burden within the large bowel and rectum. ORGANS: 4.7 cm calcified pelvic mass indicative of the uterine fibroid. BONES/JOINTS: No acute abnormality. RAD/Abdomen Single View IMPRESSION: Constipation. Electronically Signed: Hood Rubalcava MD at 11:50 EDT ,
[2024-05-03 12:08] VITALS: BP 164/86; PULSE 74; RESP 16; O2SAT 98
--- NOTE | 2024-05-03 13:26 | EDS_ITS ---
HPI HPI - GI History of Present Illness Chief Complaint: Constipation Informant: patient Narrative Narrative: Patient is an 83-year-old female with history of hypothyroidism, hypertension, atrial fibrillation and prior hemorrhoid surgery (currently anticoagulant on Eliquis) presenting for constipation. Patient states she cannot remember the last time she had a bowel movement feels like she needs to have 1. She states her abdomen just feels tight and bloated. She denies any associated nausea or vomiting. She think she is passing gas. She does note that she fell and hit her hip a week ago. She states she missed a step. She landed on her left hip/buttocks. She denies any in her head. She denies any loss of conscious. She is been ambulating since. She thought maybe she was having discomfort from the fall but is now realizing that she is probably constipated. Denies any blood in her stool and any urinary symptoms. No other complaints or concerns at this time. [facility] Medical History Vitamin D deficiency Polyneuropathy, unspecified Atrial fibrillation History of left heart catheterization (LHC) (~06/09/14) Sinus bradycardia Premature atrial contraction Essential hypertension Atherosclerotic heart disease of [place] coronary artery without angina pectoris Home Medications ?Medication ?Instructions ?Recorded ?Last Taken ?Type levothyroxine 75 mcg tablet 75 mcg PO DAILY thyroid 06/08/14 08/27/17 22:00 History 75 MCG turmeric root extract 500 mg 500 mg PO DAILY 04/05/21 Unknown History capsule apixaban 2.5 mg tablet (Eliquis) 2.5 mg PO BID #180 tabs 01/10/22 Unknown Rx dietary supplement 1 tab PO DAILY 03/20/23 Unknown History carvedilol 3.125 mg tablet 3.125 mg PO DAILY blood 04/12/23 Unknown Rx pressure/heart #90 tabs handicap placard #1 ea 12/06/23 Unknown Rx furosemide 20 mg tablet (Lasix) 40 mg (2 x 20 mg) PO DAILY PRN 03/25/24 Unknown Rx edema #90 tabs losartan 25 mg tablet 25 mg PO DAILY blood pressure #90 03/25/24 Unknown Rx tabs vitamin B complex 1 tab PO DAILY 03/25/24 Unknown History potassium 1 tab PO DAILY #3 tabs 03/26/24 Unknown Rx polyethylene glycol 3350 17 17 g PO DAILY PRN constipation 05/03/24 Unknown Rx gram/dose oral powder (Miralax) #119 grams Allergy/AdvReac Type Severity Reaction Status Date / Time lisinopril AdvReac cough Verified 05/03/24 10:08 valsartan (From Diovan) AdvReac cough Verified 05/03/24 10:08 Family History Father Myocardial infarction, Onset Age: 67 Mother Cancer Surgical History History of cholecystectomy (08/26/17) History of cardioversion (~04/19/20) History of tonsillectomy and adenoidectomy Social History household members: none housing: house current occupational status: retired Smoking Status: Never smoker alcohol intake: current alcohol intake frequency: holidays/special occasions only substance use type: does not use ROS ROS ED Constitutional Constitutional ED: Denies chills or fever(s) Cardiovascular Cardiovascular: Denies chest pain Respiratory/Chest Respiratory/Chest: Denies cough Gastrointestinal Gastrointestinal: Reports abdominal pain and constipation; Denies nausea or vomiting Genitourinary Genitourinary ED: Denies dysuria or hematuria Musculoskeletal Musculoskeletal: Reports other; Denies arthralgias or myalgias Integumentary Denies Abrasions or rash Neurologic Neurologic: Denies headache(s), paresthesias or weakness Psychiatric Psychiatric: Denies anxiety Hematologic/Lymphatic Hematologic/Lymphatic: Reports easy bleeding and other Details: on eliquis EXAM Physical Exam Const Vital Signs: 05/03/24 10:08 05/03/24 12:08 Temperature 96.5 F L Temperature Source Temporal Pulse Rate 121 H 74 Respiratory Rate 18 16 Blood Pressure 202/100 H 164/86 H Blood Pressure Mean 134 112 Pulse Ox 97 98 Oxygen Delivery Method Room Air Room Air Positive well nourished and well developed General Appearance ED: well developed and NAD HEENT Reports moist mucous membranes Eyes PERRL and EOMs intact bilaterally Neck supple General: Negative for tenderness Resp normal respiratory effort Cardio regular rate and regular rhythm GI non-tender GI Narrative: fecal impaction present on rectal exam. Nonbleeding external hemorrhoids present Inspection: Negative for abdominal distention Auscultation: normoactive bowel sounds Palpation: soft; Negative for tender or guarding Back/Spine Cervical Spine: Negative for cervical spine tenderness Thoracic Spine / Upper Back: Negative for thoracic spinal tenderness Lumbar Spine / Lower Back: Negative for lumbar spinal tenderness Extremity full ROM Extremity Narrative: Pelvis is stable. No rotational deformity of the extremities. Very minor tenderness to the left hip/pelvic region with range of motion of the left hip. No pain with logroll/range of motion of the right lower extremity. No deformity or tenderness palpation of the upper extremities. Neuro moves all extremities and no sensory deficits noted Sensorium / Orientation: alert Motor Exam: Negative for general weakness Psych mental status grossly normal Skin no wounds Rashes: no rashes MDM MDM MDM Narrative Medical decision making narrative: Patient for constipation. She also reports she had a fall a week ago and landed on her left hip/buttocks. She did not hit her head. She is not having signs of head trauma on exam and she is a week out from her fall which was relatively low velocity. I do not think she requires head imaging. Suspect this is co nstipation. Pelvic and left hip x-ray is obtained and I did order abdominal x- ray to look for any concerning bowel gas patterns stable low suspicion for obstruction based on physical exam and HPI. X-ray reviewed by myself as well as radiology does not show any acute fracture of the hip. She does have a calcification in the pelvis which radiology correlates to calcified fibroid. KUB on my review as well as radiology shows constipation with no concerning bowel gas pattern/obstruction. Patient is fecal impaction on rectal exam. She is disimpacted. Given soapsuds enema and then has couple large bowel movements per nursing staff. Patient had regular brown stool on exam. Low concern for GI bleed. Daughters at the bedside now. Daughter is informed of results. Will discharge patient home on MiraLAX, encouraged high-fiber diet and plenty of fluids. Given return precautions. Discharged home in stable condition. Instructed take Tylenol as needed for discomfort and avoid NSAIDs that she is on Eliquis. Radiography Diagnostic Testing: Clinical Impression(s) from Imaging Studies Hip/Pelvis X-Ray 05/03/24 11:05 IMPRESSION: No acute findings in the pelvis or left hip. Electronically Signed: Hood Rubalcava MD at 11:49 EDT , KUB X-Ray 05/03/24 11:05 IMPRESSION: Constipation. Electronically Signed: Hood Rubalcava MD at 11:50 EDT , Discharge Plan Triage Chief Complaint: Constipation ED Provider: Gem Mathews Dx/Rx/DC Orders Clinical Impression: Acute constipation, Acute pain of left hip, Lumbar strain Instructions: ED Back Sprain/Strain, ED Constipation (Adult) Prescriptions: New polyethylene glycol 3350 [Miralax] 17 gram/dose powder 17 g PO DAILY PRN (Reason: constipation) Qty: 119 0RF No Action turmeric root extract 500 mg capsule 500 mg PO DAILY dietary supplement Tablet 1 tab PO DAILY Rx Instructions: [employer] (DME) handicap placard See Rx Instructions .Route .MEDSUPPLY Qty: 1 0RF Rx Instructions: As directed Exp 12/05/2028 vitamin B complex Tablet 1 tab PO DAILY losartan 25 mg tablet 25 mg PO DAILY Qty: 90 3RF furosemide [Lasix] 20 mg tablet 40 mg PO DAILY PRN (Reason: edema) Qty: 90 3RF levothyroxine 75 MCG tablet 75 mcg PO DAILY Patient Comments: choose one day a week to not take Eliquis 2.5 mg tablet 2.5 mg PO BID Qty: 180 3RF carvedilol 3.125 mg tablet 3.125 mg PO DAILY Qty: 90 3RF potassium 1 tab PO DAILY Qty: 3 0RF Primary Care Provider: Taisha Doyle Referrals: Taisha Doyle NP-C [Primary Care Provider] - Activity Restrictions/Additional Instructions: It safe to take Tylenol for pain. Do not take NSAIDs such as naproxen, ibuprofen, Advil or Aleve. You have prescribed MiraLAX to help with further constipation. I will try to drink plenty of fluids and eat a high-fiber diet as well. Print Language: Finnish Disposition Disposition: Home, Self Care
[2024-05-03 14:00] VITALS: BP 159/85; PULSE 69; O2SAT 99
[2024-05-03 15:09] VITALS: BP 159/85; PULSE 69; RESP 18; TEMP 36.6; O2SAT 99
== END 2024-05-03 15:14 | disposition home or self-care (01) ==
PROVIDERS: Emergency Provider Emergency Medicine; PCP Nurse Practitioner Family; Visit Provider Emergency Medicine
DX: K59.00 Constipation, unspecified (principal); I48.91 Unspecified atrial fibrillation; S39.012A Strain of muscle, fascia and tendon of lower back, initial encounter; I25.10 Atherosclerotic heart disease of native coronary artery without angina pectoris; I10 Essential (primary) hypertension; M25.552 Pain in left hip; Z79.01 Long term (current) use of anticoagulants; Z79.899 Other long term (current) drug therapy; Z90.49 Acquired absence of other specified parts of digestive tract; W10.9XXA Fall (on) (from) unspecified stairs and steps, initial encounter
CPT/HCPCS: 73502; 74018; 99284; J7030

== ENCOUNTER → 2024-08-20 | Outpatient (CLI) | payer MEDICARE, SELFPAY ==
--- NOTE | 2024-08-20 14:47 | ART_ITS ---
Reason For Study: PVD Procedure A bilateral lower extremity continuous wave Doppler with analog waveform analysis and ankle brachial indexes. Left Segmental Pressures Left brachial= 167mmHg. Left posterior tibial artery = 182mmHg. Left dorsalis pedis artery = 179mmHg. The left posterior tibial artery waveforms are triphasic. The left dorsalis pedis waveforms are triphasic. Right Segmental Pressures Right brachial= 169mmHg. Right posterior tibial artery = 171mmHg. Right dorsalis pedis artery = 180mmHg. The right posterior tibial artery waveforms are triphasic. The right dorsalis pedis waveforms are triphasic. Indices The right resting ankle brachial index is 1.07. The right ankle brachial index by the posterior tibial artery is 1.01. The right ankle brachial index by the dorsalis pedis is 1.07. The left resting ankle brachial index is 1.08. The left ankle brachial index by the posterior tibial artery is 1.08. The left ankle brachial index by the dorsalis pedis is 1.06. VL/Ankle Brachial Index Interpretation Summary Right CHELLE 1.07, normal. Doppler/PVR waveforms of the right ankle normal at rest . Left CHELLE 1.08, normal. Doppler/PVR waveforms of the left ankle normal at rest. Ordering Physician: Norma Doyle Referring Physician: NORMA DOYLE QUALITY IMPROVEMENT COORDINATOR (RN) Performed By: Rupal Humphreys RVT, RDCS
== END | disposition home or self-care (01) ==
LOC: CVS 14:44
PROVIDERS: PCP Nurse Practitioner Family; Referring Provider Nurse Practitioner Family; Visit Provider Nurse Practitioner Family
DX: I73.9 Peripheral vascular disease, unspecified (principal)
CPT/HCPCS: 93922

== ENCOUNTER → 2024-12-08 | Outpatient (CLI) | payer MEDICARE, SELFPAY ==
--- NOTE | 2024-12-08 16:36 | RAD_ITS ---
PROCEDURE: CHEST PA AND LATERAL N/A REASON FOR EXAM: 84-year-old female, shortness of breath, cough and atrial fibrillation. TECHNIQUE: Frontal and lateral views of the chest. COMPARISON: Chest radiograph 09/22/2023, CT chest 03/15/2023. FINDINGS: Hardware: None. Heart: Stable moderate cardiomegaly with pulmonary vascular congestion. Mediastinum: There are atherosclerotic calcifications of the thoracic aorta. Lungs: No focal consolidation, pleural effusion or pneumothorax. Bones: Degenerative changes are identified within the thoracic spine. RAD/Chest PA and Lateral IMPRESSION: Stable moderate cardiomegaly. Reading Location: [id number]
== END | disposition home or self-care (01) ==
LOC: MTRAD 16:34
PROVIDERS: PCP Nurse Practitioner Family; Referring Provider Nurse Practitioner Family; Visit Provider Nurse Practitioner Family
DX: R06.02 Shortness of breath (principal)
CPT/HCPCS: 71046

== ENCOUNTER 2024-12-20 17:26 | Inpatient (IN) | payer MEDICARE, SELFPAY ==
[2024-12-20] VITALS (8 sets, daily range): BP systolic 111–131; BP diastolic 57–74; PULSE 100–105; RESP 17–24; TEMP 36.8–37.1; O2SAT 83–99; BMI 26.2; BMI 24.4
--- NOTE | 2024-12-20 17:39 | EKG12_ITS ---
Test Reason : SOB Blood Pressure : */* mmHG Vent. Rate : 106 BPM Atrial Rate : * BPM P-R Int : * ms QRS Dur : 80 ms QT Int : 326 ms P-R-T Axes : * 9 -75 degrees QTcB Int : 433 ms Atrial fibrillation with rapid ventricular response Possible Inferior infarct (cited on or before 19-Apr-2020) Abnormal ECG Confirmed by GEOVANNA ANDREWS, ADRIÁN ([id number]), online editor ARMEN BENITEZ ([id number]) on 12/21/2024 9:14:26 AM Referred By: Confirmed By: ADRIÁN AUSTIN MD
--- NOTE | 2024-12-20 17:40 | EDS_ITS ---
HPI History of Present Illness Chief Complaint: Shortness of Breath Narrative Narrative: 84-year-old female past medical history of atrial fibrillation, on blood thinners and Lasix, presents with her daughter because of increasing shortness of breath, and hypoxia at home. They relate history that they thought maybe she had pneumonia 1 to 2 weeks ago, but found out that her shortness of breath that she has had for weeks was secondary to poorly controlled atrial fibrillation. Daughter states that they upped her carvedilol to twice a day, that she takes Lasix 20 mg daily. They were told that if she has any weight gain or hypoxia that she needed to come to the emergency department as she does not wear oxygen at home. While she has had chronically swollen legs, they are not increased, but today patient had a pulse ox in the 80s. [facility] Medical History Vitamin D deficiency Polyneuropathy, unspecified Atrial fibrillation History of left heart catheterization (LHC) (~06/09/14) Sinus bradycardia Premature atrial contraction Essential hypertension Atherosclerotic heart disease of [place] coronary artery without angina pectoris Home Medications Medication Instructions Recorded Last Taken Type turmeric root extract 500 mg 500 mg PO DAILY 04/05/21 Unknown History capsule dietary supplement 1 tab PO DAILY 03/20/23 Unkn own History carvedilol 3.125 mg tablet 3.125 mg PO DAILY blood Unknown Rx pressure/heart #90 tabs furosemide 20 mg tablet (Lasix) 40 mg (2 x 20 mg) PO D AILY PRN 03/25/24 Unknown Rx edema #90 tabs losartan 25 mg tablet 25 mg PO DAILY blood pressur e #90 03/25/24 Unknown Rx tabs vitamin B complex 1 tab PO DAILY 03/25/24 Unkn own History potassium 1 tab PO DAILY #3 tabs 03/26 Unknown Rx polyethylene glycol 3350 17 17 g PO DAILY PRN constipa tion 05/03/24 Unknown Rx gram/dose oral powder (Miralax) #119 grams handicap placard #1 ea 06/02/24 Unknown Rx apixaban 2.5 mg tablet (Eliquis) 2.5 mg PO BID #180 ta bs 07/15/24 Unknown Rx levothyroxine 75 mcg tablet 75 mcg PO DAILY filling as 07/15/24 Unknown Rx courtesy until pt sees PCP #90 tabs Allergy/AdvReac Type Severity Reaction Status Date / Time lisinopril AdvReac cough Verified 06/02/24 11:16 valsartan (From Diovan) AdvReac cough Verified 06/02/24 11:16 Family History Father Myocardial infarction, Onset Age: 67 Mother Cancer Surgical History History of cholecystectomy (08/26/17) History of cardioversion (~04/19/20) History of tonsillectomy and adenoidectomy Social History household members: none housing: house current occupational status: retired Smoking Status: Never smoker alcohol intake: current alcohol intake frequency: holidays/special occasions only substance use type: does not use ROS ROS ED ROS Narrative Constitutional: No fever, no chills. No weight gain. Cardiovascular: No chest pain. No palpitations. Chronic pedal edema. Respiratory: Positive cough productive of clear sputum, positive shortness of breath. Positive hypoxia. Abdominal: No abdominal pain. No nausea. No vomiting. Genitourinary: No dysuria. No hematuria. Musculoskeletal: No myalgias. No arthralgias. Neurologic: No headaches. No dizziness. No lightheadedness. Skin: No rash. No change in color. EXAM Physical Exam Narrative Exam Narrative: Afebrile. Vital signs noted. Nontoxic-appearing. HEENT examination shows no evidence of pallor, PERRL, EOMI. No central cyanosis. Neck soft and supple without meningismus. No stridor. Cardiovascular examination reveals an irregularly irregular rhythm with intermittent tachycardia. Rhonchorous lung sounds bilaterally, no overt wheezing. Mild tachypnea. Neurological examination shows her to be awake, alert, and interactive. Bilateral symmetric trace pedal edema to +1, at baseline per daughter. Const Vital Signs: 12/20/24 17:28 12/20/24 17:28 12/20/24 17:33 Temperature 98.7 F 98.7 F Temperature Source Oral Oral Pulse Rate 104 H 104 H Respiratory Rate 20 H 20 H Respiratory Effort Short of Breath Respiratory Depth Normal Respiratory Pattern Tachypnea Blood Pressure 131/74 H 131/74 H Blood Pressure Mean 93 93 Pulse Ox 83 83 Oxygen Delivery Method Room Air Room Air Oxygen Flow Rate (L/min) 12/20/24 17:39 12/20/24 18:27 12/20/24 18:33 Temperature 98.2 F Temperature Source Oral Pulse Rate 105 H 100 Respiratory Rate 17 24 H Respiratory Effort Respiratory Depth Respiratory Pattern Blood Pressure 111/67 111/67 Blood Pressure Mean 81 81 Pulse Ox 98 99 98 Oxygen Delivery Method Nasal Cannula Nasal Cannula Nasal Cannula Oxygen Flow Rate (L/min) 4 4 MDM MDM MDM Narrative Medical decision making narrative: Differential diagnosis includes but not limited to congestive heart failure secondary to atrial fibrillation versus pneumonia versus pneumothorax. I have low suspicion for pneumothorax based on her clinical examination. Pulse ox 83% on room air. Comprehensive workup was pursued, she was placed on nasal cannula oxygen with resultant pulse ox in the 90s. Given her hypoxia at rest, comprehensive workup was pursued including chest x-ray, BNP, troponin, CBC, and CMP as well as EKG. I do feel that given her hypoxia she will require admission as she does not wear oxygen at home. EKG was obtained and interpreted by myself independently as atrial fibrillation at [address] changes. No STEMI. On review of her laboratory work she does have a leukocytosis of 17.7 with hemoglobin 14.2, hematocrit 41.6, platelet count 193. BMP is remarkable for normal BUN of 18 and creatinine 0.93 but glucose elevated at 158 with normal anion gap of 13. High-sensitivity troponin is 16. BNP is elevated [place] 4781 consistent with CHF. Additionally, on my independent interpretation of her 1 view chest x-ray, she has bilateral infiltrates and cardiomegaly. I reviewed the radiology report which confirms my independent interpretation. I do not feel that this is not an infectious pneumonia as she has no fever, and is not coughing up yellow-green productive phlegm. I deferred antibiotics to the hospitalist but she was given Lasix 40 mg intravenously. Additionally, I reviewed her respiratory swabs which are negative for COVID, influenza, and RSV. Given her hypoxia and elevated BNP, I discussed the patient with Dr. Crawley for admission to the PCU. Disposition is admitted in stable condition. History & Record Review Discussion w/independent historian: Patient and Family (Daughter) Lab Data Attestation: I reviewed the patient's lab results. Labs: Laboratory Results - last 24 hr 12/20/24 17:35 WBC 17.7 H RBC 4.60 Hgb 14.2 Hct 41.6 MCV 90.4 MCH 30.9 MCHC 34.1 RDW Std Deviation 42.6 RDW Coeff of [place] 13.0 Plt Count 193 MPV 10.8 Immature Gran % (Auto) 1.500 H Neut % (Auto) 90.2 H Lymph % (Auto) 3.7 L [place] % (Auto) 4.0 Eos % (Auto) 0.0 Baso % (Auto) 0.6 Absolute Neuts (auto) 16.0 H Absolute Lymphs (auto) 0.65 L Nucleated RBC % 0 Sodium 134 Potassium 3.9 Chloride 97 L Carbon Dioxide 24.4 Anion Gap 13 BUN 18 Creatinine 0.93 Estim Creat Clear Calc 34.34 L Est GFR (MDRD) Non-Af 60 BUN/Creatinine Ratio 19.0 Glucose 158 H Calcium 9.9 Troponin T High Sens 16 H NT pro BNP II 4781 H Radiography Chest X-Ray - ED: 1 View, Read by ED Physician, Read by Radiologist and CHF Diagnostic Testing: Clinical Impression(s) from Imaging Studies Chest X-Ray 12/20/24 17:50 IMPRESSION: Patchy bibasilar pulmonary infiltrates. Cardiomegaly. Reading Location: [facility] Management Discussion w/another healthcare provider: Hospitalist Discharge Plan Dx/Rx/DC Orders Clinical Impression: Congestive heart failure (CHF), Atrial fibrillation, Hypoxia Disposition Disposition: Acute Care Hospital [facility]
--- NOTE | 2024-12-20 17:50 | RAD_ITS ---
PROCEDURE: CHEST 1 VIEW (PORTABLE) 12/20/2024 REASON FOR EXAM: SHORTNESS OF BREATH, HYPOXIA TECHNIQUE: Frontal view of the chest. COMPARISON: Chest radiograph dated 12/08/2024. FINDINGS: Hardware: None Heart: Cardiomegaly Lungs: Patchy bibasilar airspace opacities, concerning for infection. No pneumothorax. Bones: The bones are unremarkable. Other: RAD/Chest 1 View (Portable) IMPRESSION: Patchy bibasilar pulmonary infiltrates. Cardiomegaly. [facility]
[2024-12-20 17:52] LABS: Absolute Lymphocyte Count 0.65 X10^3/uL (0.83-4.51); Basophil% 0.6 % (0-1); Hematocrit 41.6 % (37-47); Hemoglobin 14.2 g/dL (12.0-15.0); Lymphocyte # 0.65 X10^3/ul (0.83-4.51); Lymphocyte % 3.7 % (19-41); Mean Corp Hgb Conc 34.1 g/dL (32-36); Mean Corpuscular Hgb 30.9 pg (27.0-32.0); Mean Corpuscular Volume 90.4 fL (81-99); Mean Platelet Vol. 10.8 fl (6.2-12.0); Monocyte# 0.71 X10^3/uL; NRBC Flagged by Analyzer 0 % (0-5); Neutrophil # 16.01 X10^3/uL (2.7-7.7); Neutrophil % 90.2 % (47-70); Platelet Count 193 K/mm3 (150-450); RBC Distribution Width SD 42.6 fl (35.1-43.9); White Blood Count 17.7 K/mm3 (4.4-11.0)
[2024-12-20 18:09] LABS: Anion Gap 13 (5-15); BUN 18 mg/dL (4-19); Calcium,Total 9.9 mg/dL (7.6-11.0); Carbon Dioxide 24.4 mmol/L (21.0-32.0); Chloride 97 mmol/L (98-108); Creatinine, Serum 0.93 mg/dL (0.70-1.20); EST Glomerular Filtration Rate 60 (>60); Estimated Creatinine Clearance 34.34 ml/min (50-250); Glucose 158 mg/dL (70-99); Potassium 3.9 mmol/L (3.3-5.1); Pro- Brain NATRIURETIC PEPTIDE 4781 pg/mL (<=1800); Sodium Level 134 mmol/L (133-145); Troponin T High Sensitivity 16 ng/L (<=14)
--- NOTE | 2024-12-20 18:31 | PCM.HP.STD ---
HPI - General General Date of Admission: 12/20/24 Date of Service: 12/20/24 Chief Complaint: shortness of breath HPI Narrative POLLO SÁNCHEZ, is a 84 F with a PMH as outlined who presents via the ED on 12/20/2024 with a complaint of shortness of breath which had been going on for about a few days prior to admission. She apparently had pneumonia about 1-2 weeks ago, and was short of breath then. She was found to be hypoxic at home. She also had a history of poorly controlled afib, so family thought that might be the cause of her shortness of breaht. They upped her carvedilol to bid and she also took lasix 20mg daily. She admitted to edema of her lower extremities, but this was chronic. Review of systems was otherwise negative. Vitals in the ED were BP of 111/67, pulse rate of 100 and respiratory rate of 24. Temperature was 98.2 Fahrenheit and she was saturating at 98% on 2 L of oxygen. CBC showed wbc of 17.7, Hb of 14.2 qnd platelets of 193. Chemistry showed sodium of 134 with potassium of 3.9 and bicarb of 24.4. Creatinine was 0.93. proBNP was 4781. Chest x-ray showed patchy bibasilar pulmonary infiltrates and cardiomegaly. She did have an elevated white cell count and did not have any fevers so she was not started on antibiotics due to low suspicion for CHF. She is being admitted to be managed for acute exacerbation of heart failure. [facility] Medical History Vitamin D deficiency Polyneuropathy, unspecified Atrial fibrillation History of left heart catheterization (LHC) (~06/09/14) Sinus bradycardia Premature atrial contraction Essential hypertension Atherosclerotic heart disease of [place] coronary artery without angina pectoris Home Medications Medication Instructions Recorded Last Taken Type carvedilol 3.125 mg tablet 3.125 mg PO DAILY blood 04/12/23 Unknown Rx pressure/heart #90 tabs losartan 25 mg tablet 25 mg PO DAILY blood pressure #90 03/25/24 Unknown Rx tabs handicap placard #1 ea 06/02/24 Unknown Rx apixaban 2.5 mg tablet (Eliquis) 2.5 mg PO BID #180 tabs 07/15/24 Unknown Rx levothyroxine 75 mcg tablet 75 mcg PO DAILY filling as 07/15/24 Unknown Rx courtesy until pt sees PCP #90 tabs amlodipine 2.5 mg tablet 2.5 mg PO DAILY 12/20/24 Unknown History carvedilol 6.25 mg tablet 6.25 mg PO BID 12/20/24 Unknown History furosemide 20 mg tablet (Lasix) 40 mg PO DAILY edema 12/20/24 Unknown History latanoprost 0.005 % eye drops 1 drp ophthalmic (eye) QHS 12/20/24 Unknown History Allergy/AdvReac Type Severity Reaction Status Date / Time lisinopril AdvReac cough Verified 06/02/24 11:16 valsartan (From Diovan) AdvReac cough Verified 06/02/24 11:16 Family History Father Myocardial infarction, Onset Age: 67 Mother Cancer Surgical History History of cholecystectomy (08/26/17) History of cardioversion (~04/19/20) History of tonsillectomy and adenoidectomy Social History household members: none housing: house current occupational status: retired Smoking Status: Never smoker alcohol intake: current alcohol intake frequency: holidays/special occasions only substance use type: does not use ROS Review of Systems ROS Unobtainable: Denies due to encephalopathy Constitutional Constitutional: Reports fatigue, malaise and weakness; Denies anorexia, chills or fever(s) Eyes Eyes: Denies change in vision ENT HEENT: Denies dysphagia, headache(s) or sore throat Cardiovascular Cardiovascular: Reports dyspnea on exertion, edema, orthopnea and paroxysmal nocturnal dyspnea; Denies chest pain, lightheadedness, palpitations, rapid heart rate or syncope Respiratory/Chest Respiratory/Chest: Reports cough, dyspnea, shortness of breath at rest and shortness of breath with exertion; Denies productive cough or wheezing Gastrointestinal Gastrointestinal: Denies abdominal pain, constipation, diarrhea, nausea or vomiting Genitourinary Genitourinary: Denies dysuria Musculoskeletal Musculoskeletal: Denies back pain or joint pain Neurologic Neurologic: Denies confusion, dizziness, focal weakness, headache(s), numbness, seizures, syncope, tingling or tremor(s) Psychiatric Psychiatric: Denies anxiety or depression Vital Signs Vital Signs Vital Signs: 12/20/24 17:28 12/20/24 17:28 12/20/24 17:33 Temperature 98.7 F 98.7 F Temperature Source Oral Oral Pulse Rate 104 H 104 H Respiratory Rate 20 H 20 H Respiratory Effort Short of Breath Respiratory Depth Normal Respiratory Pattern Tachypnea Blood Pressure 131/74 H 131/74 H Blood Pressure Mean 93 93 Pulse Ox 83 83 Oxygen Delivery Method Room Air Room Air Oxygen Flow Rate (L/min) 12/20/24 17:39 12/20/24 18:27 Temperature Temperature Source Pulse Rate 105 H Respiratory Rate 17 Respiratory Effort Respiratory Depth Respiratory Pattern Blood Pressure 111/67 Blood Pressure Mean 81 Pulse Ox 98 99 Oxygen Delivery Method Nasal Cannula Nasal Cannula Oxygen Flow Rate (L/min) 4 4 Weight Weight: 125 lb 10.616 oz Body Mass Index (BMI) 26.2 Physical Exam Const alert, oriented x3 and no apparent distress General Appearance: cooperative HEENT normocephalic, head/scalp atraumatic, moist oral mucous membranes and oropharynx normal Mouth: oral and palatal mucosa normal Eyes PERRL, EOMs intact bilaterally and conjunctivae normal Neck no lymphadenopathy, supple and no JVD Resp Resp Narrative: mildly diminished breath sounds bibasally, no wheezes or crackles. On 2L of oxygen by nasal canula. Cardio regular rate, regular rhythm, S1 normal heart sound, S2 normal heart sound and no murmurs GI normal to inspection, nondistended, normoactive bowel sounds, soft to palpation, non-tender and non-distended Extremity normal to inspection and full ROM Extremity Narrative: bilateral 1+ pitting pedal edema Neuro oriented x3, CN's II-XII intact bilaterally, moves all extremities and no focal motor deficits Sensorium / Orientation: awake and alert Motor Exam: strength 5/5 throughout Psych affect normal Results Lab / Micro Data 12/20/24 17:35 12/20/24 17:35 Labs: Laboratory Results - last 24 hr 12/20/24 17:35: WBC 17.7 H, RBC 4.60, Hgb 14.2, Hct 41.6, MCV 90.4, MCH 30.9, MCHC 34.1, RDW Std Deviation 42.6, RDW Coeff of Sotero 13.0, Plt Count 193, MPV 10.8, Immature Gran % (Auto) 1.500 H, Neut % (Auto) 90.2 H, Lymph % (Auto) 3.7 L, [place] % (Auto) 4.0, Eos % (Auto) 0.0, Baso % (Auto) 0.6, Absolute Neuts (auto) 16.0 H, Absolute Lymphs (auto) 0.65 L, Nucleated RBC % 0, Sodium 134, Potassium 3.9, Chloride 97 L, Carbon Dioxide 24.4, Anion Gap 13, BUN 18, Creatinine 0.93, Estim Creat Clear Calc 34.34 L, Est GFR (MDRD) Non-Af 60, BUN/Creatinine Ratio 19.0, Glucose 158 H, Calcium 9.9, Troponin T High Sens 16 H, NT pro BNP II 4781 H Imaging Radiology Impression Chest X-Ray 12/20/24 17:50 IMPRESSION: Patchy bibasilar pulmonary infiltrates. Cardiomegaly. Reading Location: [facility] Assessment & Plan Assessment/Plan (1) Congestive heart failure (CHF): PLAN: Plan #Acute exacerbation of heart failure Admit to PCU. Was admitted with a complaint of shortness of breath. has elevated BNP and cheset xray shows patchy bibasilar pulmonary infiltrates and cardiomegaly. In light of elevated BNP and shortness of breath as well as lower extremity edema, will treat for heart failure. Diuresed with IV Lasix 40 mg twice daily. Monitor intake and output. Fluid restriction to 1500 cc daily. 2D echo from 07/08/2023 showed EF of 60% with normal ventricular size and regional motion abnormalities with akinetic inferior basal wall. In light of advanced age we will hold off on getting a repeat 2D echo for now. #Probable pneumonia Chest x-ray showed bilateral infiltrates. WBC is elevated at 17.7. #Benign essential hypertension On amlodipine and carvedilol. Also on losartan #Atrial fibrillation: On carvedilol and Eliquis #Sinus bradycardia: Currently heart rate is normal. On carvedilol. On monitor heart rate. #HYpothyroidism: on synthroid DVT prophylaxis: Already on Eliquis CODE STATUS:DNRCCA no intubation Patient and daughters counseled extensively about different types of CODE STATUS including full code, DNR CCA and DNR CCA. Patient elects to be DNRCCA no intubation. Total [id number] time 16 minutes. Charges/Coding Visit Charges Inpatient E&M: 03619 Init Hosp L3 Procedures Hospitalists Procedures: 79180 Advncd Care Plan 30 Min
[2024-12-20] MEDS: Furosemide 40 MG/4 ML Vial IV (18:41)
--- NOTE | 2024-12-20 19:20 | ECHOD_ITS ---
Reason For Study Reason For Study: CHF Procedure This was a 2D Doppler, Color Flow transthoracic echocardiogram. Exam performed portable in patient room. Left Ventricle Normal LV size. The left ventricular ejection fraction is 55 %. Infero-Basal: Akinetic. There are regional wall motion abnormalities as specified. Right Ventricle Normal RV size. Normal systolic function. Atria Normal left atrium. Normal right atrium. Mitral Valve Normal mitral valve. Tricuspid Valve Normal tricuspid valve. Moderate (2+) tricuspid valve insufficiency. Pulmonary artery systolic pressure is 44 mmHg. Aortic Valve Trisinus/trileaflet aortic valve. Mild focal aortic valve calcification. Mild (1+) aortic valve insufficiency. Pulmonic Valve Normal pulmonic valve. Mild (1+) pulmonic valve insufficiency. Great Vessels Normal aortic root. The pulmonary artery is normal size. Inferior vena cava collapse with respiration. Pericardium/Pleural No pericardial effusion. MMode/2D Measurements & Calculations LVIDd: 3.2 cm IVSd: 1.0 cm Ao root diam: 3.1 cm LVIDs: 2.2 cm LVPWd: 1.1 cm RVDd: 3.3 cm FS: 33.4 % LAV(MOD-bp): 42.8 ml LVAd ap4: 15.1 cm2 SV(MOD-sp4): 20.3 ml LAV(MOD-bp) Indexed: 29.6 ml/m2 LVLd ap4: 6.0 cm SI(MOD-sp4): 14.1 ml/m2 LAV(MOD-sp2): 36.7 ml EDV(MOD-sp4): 32.5 ml LAV(MOD-sp4): 44.4 ml EDV(sp4-el): 32.4 ml LVAs ap4: 8.2 cm2 LVLs ap4: 5.1 cm ESV(MOD-sp4): 12.2 ml ESV(sp4-el): 11.3 ml EF(MOD-sp4): 62.5 % EF(sp4-el): 65.1 % SV(sp4-el): 21.1 ml LA A4 area: 18.3 cm2 LA dimension(2D): 3.5 cm RA A4 area: 18.6 cm2 Doppler Measurements & Calculations MV E max muna: 95.1 cm/sec Ao V2 max: 121.4 cm/sec LV V1 max: 104.8 cm/sec Ao max P.9 mmHg LV V1 max P.4 mmHg PA V2 max: 71.1 cm/sec TR max muna: 313.0 cm/sec TR max P.2 mmHg ECHO/Echo Complete Interpretation Summary Normal LV size. The left ventricular ejection fraction is 55 %. Moderate (2+) tricuspid valve insufficiency. Pulmonary artery systolic pressure is 44 mmHg. There are regional wall motion abnormalities as specified. Ordering Physician: Katarina Crawley Referring Physician: NORMA ANGELA Performed By: Juliana Schwartz RDCS
[2024-12-20 20:30] LABS: Troponin T High Sens 2 HR 15 ng/L (<=14)
[2024-12-20] MEDS: APIXABAN 2.5 MG TABLET (WCH) PO (21:14)
[2024-12-20] MEDS: Carvedilol 6.25 MG Tablet PO (21:15)
[2024-12-21] VITALS (11 sets, daily range): BP systolic 81–113; BP diastolic 51–69; PULSE 80–106; RESP 18–26; TEMP 36.8–37.4; O2SAT 94–99; BMI 24.4
[2024-12-21] MEDS: Levothyroxine 75 MCG Tablet PO (06:29)
[2024-12-21 06:42] LABS: Absolute Lymphocyte Count 0.56 X10^3/uL (0.83-4.51); Absolute Neutrophil Count 10.8 X10^3/uL (2.0-7.7); Basophil# 0.02 X10^3/uL; Basophil% 0.2 % (0-1); Hematocrit 35.2 % (37-47); Hemoglobin 12.1 g/dL (12.0-15.0); Lymphocyte # 0.56 X10^3/ul (0.83-4.51); Lymphocyte % 4.6 % (19-41); Mean Corp Hgb Conc 34.4 g/dL (32-36); Mean Corpuscular Hgb 31.2 pg (27.0-32.0); Mean Corpuscular Volume 90.7 fL (81-99); Mean Platelet Vol. 11.4 fl (6.2-12.0); Monocyte# 0.52 X10^3/uL; Monocyte% 4.3 % (0-10); NRBC Flagged by Analyzer 0 % (0-5); Neutrophil # 10.84 X10^3/uL (2.7-7.7); POSITIVE DIFFERENTIAL YES; Platelet Count 146 K/mm3 (150-450); RBC Distribution Width CV 12.9 % (11.6-14.6); RBC Distribution Width SD 42.7 fl (35.1-43.9); Red Blood Count 3.88 M/mm3 (4.2-5.4); White Blood Count 12.1 K/mm3 (4.4-11.0)
[2024-12-21 07:10] LABS: Anion Gap 12 (5-15); BUN 21 mg/dL (4-19); BUN/Creat Ratio 23.2 RATIO (10-20); Calcium,Total 9.1 mg/dL (7.6-11.0); Carbon Dioxide 24.9 mmol/L (21.0-32.0); Chloride 97 mmol/L (98-108); Creatinine, Serum 0.89 mg/dL (0.70-1.20); EST Glomerular Filtration Rate 63 (>60); Estimated Creatinine Clearance 32.59 ml/min (50-250); Glucose 104 mg/dL (70-99); Sodium Level 134 mmol/L (133-145)
[2024-12-21] MEDS: Carvedilol 6.25 MG Tablet PO (08:58)
[2024-12-21] MEDS: APIXABAN 2.5 MG TABLET (WCH) PO ×2 (08:58→21:15)
[2024-12-21] MEDS: Furosemide 40 MG/4 ML Vial IV (08:59)
--- NOTE | 2024-12-21 09:47 | PCM.HP.STD ---
HPI - General General Date of Admission: 12/20/24 Chief Complaint: shortness of breath HPI Narrative POLLO SÁNCHEZ, is a 84 F who presents [facility] Medical History Vitamin D deficiency Polyneuropathy, unspecified Atrial fibrillation History of left heart catheterization (LHC) (~06/09/14) Sinus bradycardia Premature atrial contraction Essential hypertension Atherosclerotic heart disease of [place] coronary artery without angina pectoris Home Medications Medication Instructions Recorded Last Taken Type carvedilol 3.125 mg tablet 3.125 mg PO DAILY blood 04/12/23 Unknown Rx pressure/heart #90 tabs losartan 25 mg tablet 25 mg PO DAILY blood pressure #90 03/25/24 Unknown Rx tabs handicap placard #1 ea 06/02/24 Unknown Rx apixaban 2.5 mg tablet (Eliquis) 2.5 mg PO BID #180 tabs 07/15/24 Unknown Rx levothyroxine 75 mcg tablet 75 mcg PO DAILY filling as 07/15/24 Unknown Rx courtesy until pt sees PCP #90 tabs amlodipine 2.5 mg tablet 2.5 mg PO DAILY 12/20/24 Unknown History carvedilol 6.25 mg tablet 6.25 mg PO BID 12/20/24 Unknown History furosemide 20 mg tablet (Lasix) 40 mg PO DAILY edema 12/20/24 Unknown History latanoprost 0.005 % eye drops 1 drp ophthalmic (eye) QHS 12/20/24 Unknown History Allergy/AdvReac Type Severity Reaction Status Date / Time lisinopril AdvReac cough Verified 06/02/24 11:16 valsartan (From Diovan) AdvReac cough Verified 06/02/24 11:16 Family History Father Myocardial infarction, Onset Age: 67 Mother Cancer Surgical History History of cholecystectomy (08/26/17) History of cardioversion (~04/19/20) History of tonsillectomy and adenoidectomy Social History household members: none housing: house current occupational status: retired Smoking Status: Never smoker alcohol intake: current alcohol intake frequency: holidays/special occasions only substance use type: does not use Vital Signs Vital Signs Vital Signs: 12/20/24 17:28 12/20/24 17:28 12/20/24 17:33 Temperature 98.7 F 98.7 F Temperature Source Oral Oral Pulse Rate 104 H 104 H Respiratory Rate 20 H 20 H Respiratory Effort Short of Breath Respiratory Depth Normal Respiratory Pattern Tachypnea Blood Pressure 131/74 H 131/74 H Blood Pressure Mean 93 93 Pulse Ox 83 83 Oxygen Delivery Method Room Air Room Air Oxygen Flow Rate (L/min) 12/20/24 17:39 12/20/24 18:27 12/20/24 18:33 Temperature 98.2 F Temperature Source Oral Pulse Rate 105 H 100 Respiratory Rate 17 24 H Respiratory Effort Respiratory Depth Respiratory Pattern Blood Pressure 111/67 111/67 Blood Pressure Mean 81 81 Pulse Ox 98 99 98 Oxygen Delivery Method Nasal Cannula Nasal Cannula Nasal Cannula Oxygen Flow Rate (L/min) 4 4 12/20/24 18:47 12/20/24 19:59 12/20/24 20:10 Temperature 98.2 F 98.3 F Temperature Source Oral Pulse Rate 100 100 Respiratory Rate 24 H 18 Respiratory Effort Normal Non-Labored Respiratory Depth Normal Respiratory Pattern Normal Blood Pressure 111/67 125/57 H Blood Pressure Mean 81 79 Pulse Ox 98 96 Oxygen Delivery Method Nasal Cannula Nasal Cannula Oxygen Flow Rate (L/min) 2 2 12/20/24 23:45 12/21/24 02:00 12/21/24 02:30 Temperature 99.0 F Temperature Source Oral Pulse Rate 106 H Respiratory Rate 18 Respiratory Effort Normal Non-Labored Respiratory Depth Normal Respiratory Pattern Normal Blood Pressure 113/57 L Blood Pressure Mean 75 Pulse Ox 90 97 Oxygen Delivery Method Nasal Cannula Nasal Cannula Nasal Cannula Oxygen Flow Rate (L/min) 3 2 2 12/21/24 08:50 12/21/24 08:52 Temperature 99.3 F H Temperature Source Oral Pulse Rate 102 H Respiratory Rate 20 H Respiratory Effort Normal Non-Labored Respiratory Depth Normal Respiratory Pattern Normal Blood Pressure 105/56 L Blood Pressure Mean 72 Pulse Ox 94 Oxygen Delivery Method Nasal Cannula Nasal Cannula Oxygen Flow Rate (L/min) 4 Weight Weight: 53 kg Body Mass Index (BMI) 24.4 Results Lab / Micro Data 12/21/24 05:23 12/21/24 05:23 Labs: Laboratory Results - last 24 hr 12/20/24 17:35: WBC 17.7 H, RBC 4.60, Hgb 14.2, Hct 41.6, MCV 90.4, MCH 30.9, MCHC 34.1, RDW Std Deviation 42.6, RDW Coeff of Sotero 13.0, Plt Count 193, MPV 10.8, Immature Gran % (Auto) 1.500 H, Neut % (Auto) 90.2 H, Lymph % (Auto) 3.7 L, [place] % (Auto) 4.0, Eos % (Auto) 0.0, Baso % (Auto) 0.6, Absolute Neuts (auto) 16.0 H, Absolute Lymphs (auto) 0.65 L, Nucleated RBC % 0, Sodium 134, Potassium 3.9, Chloride 97 L, Carbon Dioxide 24.4, Anion Gap 13, BUN 18, Creatinine 0.93, Estim Creat Clear Calc 34.34 L, Est GFR (MDRD) Non-Af 60, BUN/Creatinine Ratio 19.0, Glucose 158 H, Calcium 9.9, Troponin T High Sens 16 H, NT pro BNP II 4781 H 12/20/24 20:05: Troponin T Hi Sens 2 Hr 15 H 12/21/24 05:23: WBC 12.1 H, RBC 3.88 L, Hgb 12.1, Hct 35.2 L, MCV 90.7, MCH 31.2, MCHC 34.4, RDW Std Deviation 42.7, RDW Coeff of [place]otero 12.9, Plt Count 146 L, MPV 11.4, Immature Gran % (Auto) 0.900, Neut % (Auto) 90.0 H, Lymph % (Auto) 4.[address] L, [place] % (Auto) 4.3, Eos % (Auto) 0.0, Baso % (Auto) 0.2, Absolute Neuts (auto) 10.8 H, Absolute Lymphs (auto) 0.56 L, Nucleated RBC % 0, Sodium 134, Potassium 3.0 L, Chloride 97 L, Carbon Dioxide 24.9, Anion Gap 12, BUN 21 H, Creatinine 0.89, Estim Creat Clear Calc 32.59 L, Est GFR (MDRD) Non-Af 63, BUN/Creatinine Ratio 23.2 H, Glucose 104 H, Calcium 9.1 Micro: Microbiology 12/20/24 17:37 Mucosa - Nose SARS-CoV-2, Influenza & RSV (PCR) - Final Imaging Radiology Impression Chest X-Ray 12/20/24 17:50 IMPRESSION: Patchy bibasilar pulmonary infiltrates. Cardiomegaly. Reading [facility] Assessment & Plan Assessment/Plan (1) Congestive heart failure (CHF): PLAN: Plan # Hypoxia suspect secondary to fluid overload -Admit to telemetry -proBNP 4700 -CXR with cardiomegaly and patchy bibasilar pulmonary infiltrates -Continue IV lasix -Last echo 07/16/2023 with EF of 60% but did have akinetic inferior basal wall -Repeat echo ordered -Daily weights, I's and O's -Fluid restriction, heart healthy diet #pafib - Patient on Coreg and Eliquis # Coronary artery disease - With known RCA occlusion with collateral flow - Continue Eliquis and Coreg #Hypothyroidism -Continue Synthroid #Hypertension - Patient on Lasix, losartan, Coreg, amlodipine #DVT ppx: Chronically on Eliquis Radhika Retana MD Time spent in the patient's overall evaluation, decision-making process, review of diagnostic data, adjustment of management, discussion with other providers, nursing and ancillary staff involved in patient's care documentation, [] Minutes
--- NOTE | 2024-12-21 09:54 | PCM.PN.HOSP ---
Reason for Visit Reason for Visit: Diagnoses Heart failure, unspecified (12/20/24) Subjective Subjective Patient reports she still feels just generally not well, breathing about the same possibility but better, reports no cough however it does sound to have congestion when she coughs and then amended that she just cannot get anything up. Of note patient's BP was soft after receiving Lasix there was concern for volume depletion so further Lasix held but when she got up to go to chair she had a brief syncopal episode without any specific event noted on telemetry the patient never lost pulse Objective Data Objective Data Vital Signs: Vital Signs Temp Pulse Resp BP Pulse Ox O2 Del Method O2 Flow Rate 99.3 F H 102 H 20 H 105/56 L 94 Nasal Cannula 4 12/21/24 08:50 12/21/24 08:50 12/21/24 08:50 12/21/24 08:50 12/21/24 08:50 12/21/24 08:52 12/21/24 08:50 Oxygen Flow Rate (L/min) 4 Oxygen Delivery Method Nasal Cannula Weight: 53 kg Body Mass Index (BMI) 24.4 Intake & Output: Intake and Output for Last 24 Hours 12/19/24 12/20/24 12/21/24 23:59 23:59 23:59 Intake Total 300 / 300 Output Total 150 / 150 Balance 150 / 150 Lab / Micro Data 12/21/24 13:47 12/21/24 13:47 Labs: Laboratory Results - last 24 hr 12/20/24 17:35: WBC 17.7 H, RBC 4.60, Hgb 14.2, Hct 41.6, MCV 90.4, MCH 30.9, MCHC 34.1, RDW Std Deviation 42.6, RDW Coeff of Sotero 13.0, Plt Count 193, MPV 10.8, Immature Gran % (Auto) 1.500 H, Neut % (Auto) 90.2 H, Lymph % (Auto) 3.7 L, [place] % (Auto) 4.0, Eos % (Auto) 0.0, Baso % (Auto) 0.6, Absolute Neuts (auto) 16.0 H, Absolute Lymphs (auto) 0.65 L, Nucleated RBC % 0, Sodium 134, Potassium 3.9, Chloride 97 L, Carbon Dioxide 24.4, Anion Gap 13, BUN 18, Creatinine 0.93, Estim Creat Clear Calc 34.34 L, Est GFR (MDRD) Non-Af 60, BUN/Creatinine Ratio 19.0, Glucose 158 H, Calcium 9.9, Troponin T High Sens 16 H, NT pro BNP II 4781 H 12/20/24 20:05: Troponin T Hi Sens 2 Hr 15 H 12/21/24 05:23: WBC 12.1 H, RBC 3.88 L, Hgb 12.1, Hct 35.2 L, MCV 90.7, MCH 31.2, MCHC 34.4, RDW Std Deviation 42.7, RDW Coeff of Sotero 12.9, Plt Count 146 L, MPV 11.4, Immature Gran % (Auto) 0.900, Neut % (Auto) 90.0 H, Lymph % (Auto) 4.6 L, [place] % (Auto) 4.3, Eos % (Auto) 0.0, Baso % (Auto) 0.2, Absolute Neuts (auto) 10.8 H, Absolute Lymphs (auto) 0.56 L, Nucleated RBC % 0, Sodium 134, Potassium 3.0 L, Chloride 97 L, Carbon Dioxide 24.9, Anion Gap 12, BUN 21 H, Creatinine 0.89, Estim Creat Clear Calc 32.59 L, Est GFR (MDRD) Non-Af 63, BUN/Creatinine Ratio 23.2 H, Glucose 104 H, Calcium 9.1 Micro: Microbiology 12/20/24 17:37 Mucosa - Nose SARS-CoV-2, Influenza & RSV (PCR) - Final Radiography Diagnostic Testing: Radiology Impression Chest X-Ray 12/20/24 17:50 IMPRESSION: Patchy bibasilar pulmonary infiltrates. Cardiomegaly. Reading Location: [facility] Physical Exam Narrative General: Alert, oriented, no apparent distress HEENT: Atraumatic, normocephalic Eyes: Anicteric, normal conjunctiva, extraocular movements grossly intact Neck: Supple Respiratory: Coarse bilaterally, normal respiratory effort Cardiovascular: Regular rate GI: Soft, nontender, nondistended Extremities: No edema Musculoskeletal: Moving all extremities Neuro: No overt focal neurological deficits Skin: No rashes appreciated Psych: Cooperative Assessment & Plan Assessment/Plan (1) Pneumonia: PLAN: Plan # Hypoxia suspect secondary to community-acquired pneumonia -Imaging: Chest x-ray with patchy bibasilar pulmonary infiltrates -DuoNebs and as needed albuterol -Sputum culture, COVID negative, respiratory panel ordered -Urine antigens -Mucinex, I/S -Rocephin and azithromycin - There is concern for possible fluid overload given proBNP was 4700 and she was given IV Lasix but appeared to quickly become volume depleted and repeat echo demonstrated EF is 55%, does not want any specific diastolic dysfunction, PASP 44 and moderate tricuspid insufficiency, did have akinetic inferior basal wall which is not new - Lasix held, treating patient for pneumonia, O2 requirements to decrease to 2 L throughout the day with Coverage # Syncopal episode - Patient had brief episode of syncope when she was getting up to go to the chair, reportedly did just have a small bowel movement so unclear if there could have been a component of vagal but it does not seem anything remarkable is on telemetry - Suspect this is due to patient's low blood pressure, her medications been adjusted and Lasix held - Patient given gentle IV fluids and blood pressure improving - Patient has seizure-like activity or confusion after the incident, continue to monitor closely - Recent repeat echo as above #pafib - Patient on Coreg and Eliquis - Decreased Coreg, holding parameters # Coronary artery disease - With known RCA occlusion with collateral flow - Continue Eliquis and Coreg #Hypothyroidism -Continue Synthroid #Hypertension - Patient blood pressure was soft after receiving IV Lasix, this has been held and patient received gentle IV fluids with improvement - Decrease Coreg and have holding parameters, holding other home medications #DVT ppx: Chronically on Eliquis Radhika Retana MD Charges/Coding Visit Charges Inpatient E&M: 20096 Subs Hosp L2
[2024-12-21] MEDS: Potassium Chloride Oral Tablet 20 MEQ 40 MEQ PO (10:18)
[2024-12-21] MEDS: Ceftriaxone 2 GM in 0.9% Normal Saline (50mL MB+) 50 ML IV (11:19)
--- NOTE | 2024-12-21 11:26 | CASEMGMT ---
SALAS WHITFIELD Assessment Face to Face with patient for initial transition planning/care coordination assessment. SALAS WHITFIELD introduced self and role at [facility], pt voices understanding. Pt is A&Ox4 and is resting comfortably in the chair and is calm. Care providers, pharmacy, and demographics verified. Admitting dx: AE HF LACE Strata: 2 PCP: Taihsa Doyle Specialists: ANA Preferred Pharmacy: [facility] Insurance: [employer] [facility] Prescription Benefit: Yes LNOK: Monica Guerrero (Daughter), Clary Pacheco (Daughter) Living Arrangements: Pt lives alone in a single story home with one step to enter ADLs/IADLs: Pt states that she is independent at baseline Transportation: Self, daughter. Denies concerns DME: FWW, BP machine, cane, grab bars, shower seat. Pt is currently requiring additional oxygen and may qualify for home oxygen use. A verbal list of local in-network DME companies were provided to the pt at this time. Pt prefers [employer]. Pt states that she would be interested in home oxygen even if she does not qualify. Pt educated that the pt would have to private pay for this if she does not qualify. CM to follow. HHC/SNF: Denies history Pt’s goal: TBD Plan: TBD. At this time, the pt states that it is too early in her stay to determine what she will need or want at the time of DC. PT is ordered and pending. Follow for oxygen, HH, OP Tx, and/or SNF needs. Pt denies further questions or concerns at this time. Report given to STANDARD MACHINE [employer]ITCHER CM. Char Nj RN, CM
[2024-12-21] MEDS: Azithromycin 500 MG in 0.9% Normal Saline (250mL Bag) 250 ML 255 MG IV (11:56)
--- NOTE | 2024-12-21 13:50 | NURSING ---
Went into room with LAMP WIRER's to answer bed exit, patient wanting to get up to chair. Patient stopped walking half way to the chair, stating she felt week. Patient then stopped answering, legs gave out, and she was lifted into chair. BP 81/63, O2 99% 4L, HR 80, respirations 26. Patient had an incontinent bowel movement. Patient took a minute to begin responding, but once she did stated she just felt weak. Patient A&Ox3, left in chair with legs up and chair alarm on. MD notified and new orders placed.
[2024-12-21 14:01] LABS: Hematocrit 36.5 % (37-47); Hemoglobin 12.2 g/dL (12.0-15.0); Mean Corp Hgb Conc 33.4 g/dL (32-36); Mean Corpuscular Hgb 30.7 pg (27.0-32.0); Mean Corpuscular Volume 91.9 fL (81-99); Mean Platelet Vol. 11.1 fl (6.2-12.0); Platelet Count 153 K/mm3 (150-450); RBC Distribution Width CV 13.1 % (11.6-14.6); Red Blood Count 3.97 M/mm3 (4.2-5.4); White Blood Count 10.6 K/mm3 (4.4-11.0)
--- NOTE | 2024-12-21 14:08 | CHAPLAIN ---
Type of Pastoral Visit _x__ Initial Visit ___ Follow-up Visit ___ On-call Visit ___ General Patient Visit ___ Spiritual Assessment ___ Family Conference ___ Bereavement ___ Rapid Response ___ Code Blue ___ Other (describe below) Pastoral Care Referral From _x__ Patient ___ Family ___ Nurse ___ Physician ___ Advertising Solicitor ___ Security Engineer ___ Other (describe below) Sacrament/Intervention ___ Active listening ___ Anointing ___ Mosque ___ Bereavement ___ Communion ___ Awilda exploration ___ ___ Life review _x__ Prayer ___ Reconciliation ___ Sacrament of Sick _x__ Supportive presence ___ Wedding ___ Other (describe below) Pastoral Comments 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
[2024-12-21 14:25] LABS: Anion Gap 11 (5-15); BUN 25 mg/dL (4-19); BUN/Creat Ratio 26.3 RATIO (10-20); Calcium,Total 9.1 mg/dL (7.6-11.0); Carbon Dioxide 24.5 mmol/L (21.0-32.0); Chloride 98 mmol/L (98-108); Creatinine, Serum 0.94 mg/dL (0.70-1.20); EST Glomerular Filtration Rate 59 (>60); Estimated Creatinine Clearance 30.86 ml/min (50-250); Glucose 129 mg/dL (70-99); Potassium 3.9 mmol/L (3.3-5.1); Sodium Level 133 mmol/L (133-145)
[2024-12-21] MEDS: 0.9% Normal Saline (250mL Bag) 250 ML 999 ML IV (14:25)
[2024-12-21] MEDS: Ipratropium/Albuterol Sulfate 3 ML AMPUL.NEB INHALATION (19:42)
[2024-12-21] MEDS: guaiFENesin 1,200 MG Tablet 1200 MG PO (21:15)
[2024-12-21] MEDS: Latanoprost 0.005% 1 Bottle 1 DRP OPHTHALMIC (21:15)
[2024-12-22] VITALS (7 sets, daily range): BP systolic 108–133; BP diastolic 60–92; PULSE 71–105; RESP 14–18; TEMP 36.5–36.8; O2SAT 92–100; BMI 24.5
[2024-12-22] MEDS: Levothyroxine 75 MCG Tablet PO (06:36)
[2024-12-22] MEDS: Ipratropium/Albuterol Sulfate 3 ML AMPUL.NEB INHALATION ×3 (07:27→19:25)
[2024-12-22 07:35] LABS: Absolute Lymphocyte Count 0.65 X10^3/uL (0.83-4.51); Absolute Neutrophil Count 8.2 X10^3/uL (2.0-7.7); Basophil# 0.02 X10^3/uL; Basophil% 0.2 % (0-1); Eosinophil# 0.02 X10^3/uL; Eosinophils% 0.2 % (0-5); Hematocrit 36.5 % (37-47); Hemoglobin 12.2 g/dL (12.0-15.0); Lymphocyte # 0.65 X10^3/ul (0.83-4.51); Lymphocyte % 6.8 % (19-41); Mean Corp Hgb Conc 33.4 g/dL (32-36); Mean Corpuscular Hgb 30.9 pg (27.0-32.0); Mean Corpuscular Volume 92.4 fL (81-99); Mean Platelet Vol. 11.6 fl (6.2-12.0); Monocyte# 0.56 X10^3/uL; Monocyte% 5.9 % (0-10); NRBC Flagged by Analyzer 0 % (0-5); Neutrophil # 8.19 X10^3/uL (2.7-7.7); Neutrophil % 86.3 % (47-70); Platelet Count 154 K/mm3 (150-450); RBC Distribution Width CV 13.1 % (11.6-14.6); RBC Distribution Width SD 44.3 fl (35.1-43.9); Red Blood Count 3.95 M/mm3 (4.2-5.4); White Blood Count 9.5 K/mm3 (4.4-11.0)
[2024-12-22 08:06] LABS: Anion Gap 10 (5-15); BUN 28 mg/dL (4-19); BUN/Creat Ratio 34.6 RATIO (10-20); Calcium,Total 9.1 mg/dL (7.6-11.0); Carbon Dioxide 24.5 mmol/L (21.0-32.0); Chloride 103 mmol/L (98-108); EST Glomerular Filtration Rate 72 (>60); Estimated Creatinine Clearance 36.26 ml/min (50-250); Glucose 93 mg/dL (70-99); Potassium 3.5 mmol/L (3.3-5.1); Sodium Level 137 mmol/L (133-145)
[2024-12-22] MEDS: Ceftriaxone 2 GM in 0.9% Normal Saline (50mL MB+) 50 ML IV (09:11)
[2024-12-22] MEDS: Carvedilol 3.125 MG TABLET PO ×2 (09:11→10:32)
[2024-12-22] MEDS: APIXABAN 2.5 MG TABLET (WCH) PO ×2 (09:11→21:08)
[2024-12-22] MEDS: guaiFENesin 1,200 MG Tablet 1200 MG PO ×2 (09:11→21:08)
[2024-12-22] MEDS: Azithromycin 500 MG in 0.9% Normal Saline (250mL Bag) 250 ML 255 MG IV (10:33)
[2024-12-22] MEDS: Carvedilol 6.25 MG Tablet PO (16:04)
--- NOTE | 2024-12-22 18:36 | PN.HOSP_ITS ---
Reason for Visit Reason for Visit: Diagnoses Heart failure, unspecified (12/20/24) Pneumonia, unspecified organism (12/20/24) Subjective Subjective Patient sitting up in chair, oxygen weaned off today, still weak and short of breath but significantly improved Objective Data Objective Data Vital Signs: Vital Signs Temp Pulse Resp BP Pulse Ox O2 Del Method O2 Flow Rate 98.3 F 104 H 18 113/60 100 Room Air 1 12/22/24 16:03 12/22/24 16:03 12/22/24 16:03 12/22/24 16:03 12/22/24 16:03 12/22/24 16:03 12/22/24 07:21 Oxygen Flow Rate (L/min) 1 Oxygen Delivery Method Room Air Weight: 53.4 kg Body Mass Index (BMI) 24.5 Intake & Output: Intake and Output for Last 24 Hours 12/20/24 12/21/24 12/22/24 23:59 23:59 23:59 Intake Total 1575 / 1575 1155 / 1155 Output Total 150 / 150 330 / 330 Balance 1425 / 1425 825 / 825 Lab / Micro Data 12/22/24 06:52 12/22/24 06:52 Labs: Laboratory Results - last 24 hr 12/22/24 06:52: WBC 9.5, RBC 3.95 L, Hgb 12.2, Hct 36.5 L, MCV 92.4, MCH 30.9, MCHC 33.4, RDW Std Deviation 44.3 H, RDW Coeff of Sotero 13.1, Plt Count 154, MPV 11.6, Immature Gran % (Auto) 0.600, Neut % (Auto) 86.3 H, Lymph % (Auto) 6.8 L, [place] % (Auto) 5.9, Eos % (Auto) 0.2, Baso % (Auto) 0.2, Absolute Neuts (auto) 8.2 H, Absolute Lymphs (auto) 0.65 L, Nucleated RBC % 0, Sodium 137, Potassium 3.5, Chloride 103, Carbon Dioxide 24.5, Anion Gap 10, BUN 28 H, Creatinine 0.80, Estim Creat Clear Calc 36.26 L, Est GFR (MDRD) Non-Af 72, BUN/Creatinine Ratio 34.6 H, Glucose 93, Calcium 9.1 Micro: Microbiology 12/21/24 21:15 Sputum, Expectorated/Coughed Gram Stain - Final 12/22/24 10:30 Urine, Random Legionella Antigen - Final 12/22/24 10:30 Urine, Random Streptococcus pneumoniae Antigen (M - Final 12/21/24 11:50 Mucosa - Nose Respiratory Panel (PCR) - Final 12/20/24 17:37 Mucosa - Nose SARS-CoV-2, Influenza & RSV (PCR) - Final Physical Exam Narrative General: Alert, oriented, no apparent distress HEENT: Atraumatic, normocephalic Eyes: Anicteric, normal conjunctiva, extraocular movements grossly intact Neck: Supple Respiratory: Still little bit coarse but improving, normal respiratory effort Cardiovascular: Regular rate GI: Soft, nontender, nondistended Extremities: No edema Musculoskeletal: Moving all extremities Neuro: No overt focal neurological deficits Skin: No rashes appreciated Psych: Cooperative Assessment & Plan Assessment/Plan (1) Pneumonia: PLAN: Plan # Hypoxia suspect secondary to community-acquired pneumonia -Imaging: Chest x-ray with patchy bibasilar pulmonary infiltrates -DuoNebs and as needed albuterol -Sputum culture, COVID negative, respiratory panel ordered -Urine antigens -Mucinex, I/S -Rocephin and azithromycin - There is concern for possible fluid overload given proBNP was 4700 and she was given IV Lasix but appeared to quickly become volume depleted and repeat echo demonstrated EF is 55%, does not want any specific diastolic dysfunction, PASP 44 and moderate tricuspid insufficiency, did have akinetic inferior basal wall which is not new - Lasix held, treating patient for pneumonia, O2 requirements to decrease to 2 L throughout the day with Coverage -12/22: Patient significantly improved with pneumonia coverage and did not seem to decompensate despite holding Lasix and giving IV fluids suspect that this was due to pneumonia, continue IV antibiotics, if patient continues current trajectory and doing well tomorrow may be able to consider DC # Syncopal episode - Patient had brief episode of syncope when she was getting up to go to the chair, reportedly did just have a small bowel movement so unclear if there could have been a component of vagal but it does not seem anything remarkable is on telemetry - Suspect this is due to patient's low blood pressure, her medications been adjusted and Lasix held - Patient given gentle IV fluids and blood pressure improving - Patient has seizure-like activity or confusion after the incident, continue to monitor closely - Recent repeat echo as above -12/22: Resolved with cessation of Lasix and giving patient IV fluids, no further episodes #pafib - Patient on Coreg and Eliquis - Decreased Coreg, holding parameters -12/22: Coreg 3 increased # Coronary artery disease - With known RCA occlusion with collateral flow - Continue Eliquis and Coreg -12/22: Increase Coreg to home dose #Hypertension - Patient blood pressure was soft after receiving IV Lasix, this has been held and patient received gentle IV fluids with improvement - Decrease Coreg and have holding parameters, holding other home medications -12/22: Blood pressure improving, Coreg dose increased, if further improves tomorrow can add back further home medications Chronic medical problems and/or problems not being actively addressed during today's encounter: #Hypothyroidism -Continue Synthroid #DVT ppx: Chronically on Eliquis Radhika Retana MD Time spent in the patient's overall evaluation,decision-making process, review of diagnostic data, adjustment of management, discussion with other providers, nursing nursing and ancillary staff involved in patient's care documentation, 36 minutes Charges/Coding Visit Charges Inpatient E&M: 06560 Subs Hosp L2
[2024-12-22] MEDS: Latanoprost 0.005% 1 Bottle 1 DRP OPHTHALMIC (21:08)
[2024-12-23 03:24] VITALS: BP 150/83; PULSE 104; RESP 18; TEMP 36.4; O2SAT 92
[2024-12-23 04:52] VITALS: BMI 24.6
[2024-12-23 05:50] LABS: Absolute Lymphocyte Count 0.68 X10^3/uL (0.83-4.51); Absolute Neutrophil Count 4.9 X10^3/uL (2.0-7.7); Basophil# 0.03 X10^3/uL; Basophil% 0.5 % (0-1); Eosinophil# 0.06 X10^3/uL; Hematocrit 38.5 % (37-47); Hemoglobin 12.8 g/dL (12.0-15.0); Lymphocyte # 0.68 X10^3/ul (0.83-4.51); Mean Corp Hgb Conc 33.2 g/dL (32-36); Mean Corpuscular Hgb 30.7 pg (27.0-32.0); Mean Corpuscular Volume 92.3 fL (81-99); Mean Platelet Vol. 11.5 fl (6.2-12.0); Monocyte# 0.47 X10^3/uL; Monocyte% 7.6 % (0-10); NRBC Flagged by Analyzer 0 % (0-5); Neutrophil % 79.4 % (47-70); Platelet Count 206 K/mm3 (150-450); RBC Distribution Width CV 13.2 % (11.6-14.6); RBC Distribution Width SD 44.7 fl (35.1-43.9); Red Blood Count 4.17 M/mm3 (4.2-5.4); White Blood Count 6.2 K/mm3 (4.4-11.0)
[2024-12-23] MEDS: Levothyroxine 75 MCG Tablet PO (05:50)
[2024-12-23 06:52] LABS: Anion Gap 11 (5-15); BUN 28 mg/dL (4-19); BUN/Creat Ratio 36.1 RATIO (10-20); Calcium,Total 9.5 mg/dL (7.6-11.0); Carbon Dioxide 25.1 mmol/L (21.0-32.0); Chloride 102 mmol/L (98-108); Creatinine, Serum 0.77 mg/dL (0.70-1.20); EST Glomerular Filtration Rate 75 (>60); Estimated Creatinine Clearance 36.26 ml/min (50-250); Glucose 115 mg/dL (70-99); Potassium 3.7 mmol/L (3.3-5.1); Sodium Level 138 mmol/L (133-145)
[2024-12-23 07:01] VITALS: PULSE 98; RESP 20; O2SAT 93
[2024-12-23] MEDS: Ipratropium/Albuterol Sulfate 3 ML AMPUL.NEB INHALATION (07:01)
[2024-12-23 09:20] VITALS: BP 145/87; PULSE 115; RESP 17; TEMP 36.6; O2SAT 96
[2024-12-23] MEDS: Losartan Potassium 25 MG Tablet PO (10:19)
[2024-12-23] MEDS: amLODIPine 2.5 MG Tablet PO (10:20)
[2024-12-23] MEDS: APIXABAN 2.5 MG TABLET (WCH) PO (10:20)
[2024-12-23] MEDS: Azithromycin 500 MG in 0.9% Normal Saline (250mL Bag) 250 ML 255 MG IV (10:21)
[2024-12-23] MEDS: guaiFENesin 1,200 MG Tablet 1200 MG PO (10:21)
[2024-12-23] MEDS: Ceftriaxone 2 GM in 0.9% Normal Saline (50mL MB+) 50 ML IV (12:36)
--- NOTE | 2024-12-23 13:59 | DCINST_ITS ---
Discharge Instructions Diet Discharge Diet: - (DASH diet) DC O2, CPAP, BIPAP needs Home O2 Discharge instructions: No Dressing / Incision Discharge Activity: - (Increase activity as tolerated) Follow Up Care Test Results: Test results from this visit will be discussed in further detail at your follow- up appointment, if applicable. Discharge Plan Admission Admit Date/Time: 12/20/24 18:55 Primary Reason for Your Visit: Shortness of breath Attending Provider: Radhika Retana Primary Care Provider: Taisha Doyle Consulting Providers: Katarina Crawley Instructions Patient Instructions: ED Pneumonia (Adult) Additional Instructions / Restrictions: DISCHARGE INSTRUCTIONS PLEASE READ *Please take this with you to your next doctors appointment* - Given your concerns for diarrhea due to your carvedilol this has been stopped and metoprolol has been sent to your preferred pharmacy - You will be discharged on 4 more days of antibiotics, you will take Augmentin twice daily for 4 days -Your medications have been sent to preferred pharmacy on file -Weigh yourself every day. A sudden weight gain can mean you are retaining fluid. Weigh yourself at the same time of day and in the same kind of clothes. Ideally, weigh yourself first thing in the morning after you empty your bladder, but before you eat breakfast. -Please call your physician if your weight goes up by more than 2 pounds in 1 day or 5 pounds in 1 week. This can be a sign that you are retaining more fluid than you should be. -Please call your primary care provider's office upon discharge to schedule a hospital follow up within 1 week. -For any concerning signs or symptoms please call 911 or proceed to the nearest emergency department Discharge Orders/Prescriptions Prescriptions: New amoxicillin-pot clavulanate 875-125 mg tablet 1 tab PO BID 4 Days Qty: 8 0RF metoprolol tartrate 25 mg Tablet 12.5 mg PO BID 30 Days Qty: 30 0RF Continued losartan 25 mg tablet 25 mg PO DAILY Qty: 90 3RF amlodipine 2.5 mg tablet 2.5 mg PO DAILY latanoprost 0.005 % drops 1 drp ophthalmic (eye) QHS furosemide [Lasix] 20 mg tablet 40 mg PO DAILY Eliquis 2.5 mg tablet 2.5 mg PO BID Qty: 180 3RF levothyroxine 75 mcg tablet 75 mcg PO DAILY Qty: 90 3RF Discontinued carvedilol 6.25 mg tablet 6.25 mg PO BID carvedilol 3.125 mg tablet 3.125 mg PO DAILY Qty: 90 3RF No Action (DME) handicap placard See Rx Instructions .Route .MEDSUPPLY Qty: 1 0RF Rx Instructions: As directed Exp 12/05/2028 Referrals / Follow Up: Taisha Doyle, WINCHMAN/CRANE OPERATOR-C [Primary Care Provider] - Within 1 Week Disposition Disposition (needs filled in before D/C Order can be placed): Home, Self Care
--- NOTE | 2024-12-23 14:07 | DS.PCM_ITS ---
Providers Date of Admission: 12/20/24 Date of Discharge: 12/23/24 Primary Care Physician: Taisha Doyle, OUTBOARD SYSTEM OPERATOR-C Reason For Visit: Hypoxia secondary to community-acquired pneumonia Diagnosis Discharge Diagnosis (1) Pneumonia: Status: Acute Code(s): J18.9 - Pneumonia, unspecified organism Plan # Hypoxia secondary to community-acquired pneumonia # Syncopal episode 2/2 dehydration #pafib # Coronary artery disease #Hypertension #Hypothyroidism Medications at Discharge Home Medications losartan 25 mg tablet 25 mg PO DAILY blood pressure #90 tabs 03/25/24 handicap placard #1 ea 06/02/24 apixaban 2.5 mg tablet (Eliquis) 2.5 mg PO BID blood thinner #180 tabs 07/15/24 levothyroxine 75 mcg tablet 75 mcg PO DAILY thyroid #90 tabs 07/15/24 amlodipine 2.5 mg tablet 2.5 mg PO DAILY blood pressure 12/20/24 furosemide 20 mg tablet (Lasix) 40 mg PO DAILY edema 12/20/24 latanoprost 0.005 % eye drops 1 drp ophthalmic (eye) QHS glaucoma 12/20/24 amoxicillin 875 mg-potassium clavulanate 125 mg tablet 1 tab PO BID 4 days #8 tabs 12/23/24 metoprolol tartrate 25 mg tablet 12.5 mg (1/2 x 25 mg) PO BID 30 days #30 tabs 12/23/24 Hospital Course Summary of Care Provided Minutes Spent on Discharge: 32 Hospital Course: # Hypoxia secondary to community-acquired pneumonia # Syncopal episode 2/2 dehydration #pafib # Coronary artery disease #Hypertension #Hypothyroidism 84-year-old female with the above presented to [facility] ED 12/20/2024 with shortness of breath, chest x-ray showed bibasilar pulmonary infiltrates with an elevated white blood cell count but was afebrile. proBNP [place] elevated [place] 4781. Initially was felt that patient was more likely fluid overload than pneumonia and empiric antibiotics were not started, patient did not improve with diuretics and was placed on antibiotics with significant improvement, Lasix had to be stopped as patient became volume depleted with a soft blood pressure and had a syncopal episode. Patient given gentle IV fluids and medications held and this improved with no further episodes. On day of discharge patient reports feeling anxious about her respiratory status and she knows that makes things worse for her, she no longer wants to take her carvedilol she reports she began having diarrhea ever since starting that however is willing to take metoprolol. Patient has no other new or acute complaints and reports breathing is much better, still has cough but sputum is now more awake in nature with no rust asked discoloration. Patient discharged home in stable condition with following discharge instructions: - Given your concerns for diarrhea due to your carvedilol this has been stopped and metoprolol has been sent to your preferred pharmacy - You will be discharged on 4 more days of antibiotics, you will take Augmentin twice daily for 4 days -Your medications have been sent to preferred pharmacy on file -Weigh yourself every day. A sudden weight gain can mean you are retaining fluid. Weigh yourself at the same time of day and in the same kind of clothes. Ideally, weigh yourself first thing in the morning after you empty your bladder, but before you eat breakfast. -Please call your physician if your weight goes up by more than 2 pounds in 1 day or 5 pounds in 1 week. This can be a sign that you are retaining more fluid than you should be. -Please call your primary care provider's office upon discharge to schedule a hospital follow up within 1 week. -For any concerning signs or symptoms please call 911 or proceed to the nearest emergency department Physical Exam Narrative General: Alert, oriented, no apparent distress HEENT: Atraumatic, normocephalic Eyes: Anicteric, normal conjunctiva, extraocular movements grossly intact Neck: Supple Respiratory: Normal respiratory effort, clear to auscultation bilaterally Cardiovascular: Regular rate GI: Soft, nontender, nondistended Extremities: No significant pitting edema Musculoskeletal: Moving all extremities Neuro: No overt focal neurological deficits Skin: No rashes appreciated Psych: Cooperative Weight / BMI Weight Weight: 53.5 kg Body Mass Index (BMI) 24.6 ABG / Lab / Microbiology Data 12/23/24 04:59 12/23/24 04:59 Laboratory: Laboratory Results - last 24 hr 12/23/24 04:59: WBC 6.2, RBC 4.17 L, Hgb 12.8, Hct 38.5, MCV 92.3, MCH 30.7, MCHC 33.2, RDW Std Deviation 44.7 H, RDW Coeff of Sotero 13.2, Plt Count 206, MPV 11.5, Immature Gran % (Auto) 0.500, Neut % (Auto) 79.4 H, Lymph % (Auto) 11.0 L, [place] % (Auto) 7.6, Eos % (Auto) 1.0, Baso % (Auto) 0.5, Absolute Neuts (auto) 4.9, Absolute Lymphs (auto) 0.68 L, Nucleated RBC % 0, Sodium 138, Potassium 3.7, Chloride 102, Carbon Dioxide 25.1, Anion Gap 11, BUN 28 H, Creatinine 0.77, Estim Creat Clear Calc 36.26 L, Est GFR (MDRD) Non-Af 75, BUN/Creatinine Ratio 36.1 H, Glucose 115 H, Calcium 9.5 Microbiology: Microbiology 12/21/24 21:15 Sputum, Expectorated/Coughed Gram Stain - Final 12/22/24 10:30 Urine, Random Legionella Antigen - Final 12/22/24 10:30 Urine, Random Streptococcus pneumoniae Antigen (M - Final 12/21/24 11:50 Mucosa - Nose Respiratory Panel (PCR) - Final 12/20/24 17:37 Mucosa - Nose SARS-CoV-2, Influenza & RSV (PCR) - Final D/C Instructions Discharge Diet: - (DASH diet) DC O2, CPAP, BIPAP Needs Home O2 Discharge instructions: No Meaningful Use Info Meaningful Use Meaningful Use Diagnoses (Choose all that apply): None applicable Ischemic Stroke Statin Dosing Therapy Reference: STATIN DOSE THERAPY REFERENCE: * Patients > 75 years receive moderate or high dose statin therapy. * Patients 75 years or YOUNGER should receive HIGH intensity statin dose unless contraindicated. You will be required to document reason for non-treatment if statin daily dose does not meet guidelines. HIGH DOSE STATIN THERAPY DAILY Atorvastatin > than or = to 40 mg Rosuvastatin > than or = to 20 mg Amlodipine + Atorvastatin > than or = to 2.5/40 mg Ezetimibe + Simvastatin 10/80 mg Simvastatin 80mg Discharge Plan Admission Admit Date/Time: 12/20/24 18:55 Primary Reason for Your Visit: Shortness of breath Attending Provider: Radhika Retana Primary Care Provider: Taisha Doyle Consulting Providers: Katarina Crawley Instructions Patient Instructions: ED Pneumonia (Adult) Additional Instructions / Restrictions: DISCHARGE INSTRUCTIONS PLEASE READ *Please take this with you to your next doctors appointment* - Given your concerns for diarrhea due to your carvedilol this has been stopped and metoprolol has been sent to your preferred pharmacy - You will be discharged on 4 more days of antibiotics, you will take Augmentin twice daily for 4 days -Your medications have been sent to preferred pharmacy on file -Weigh yourself every day. A sudden weight gain can mean you are retaining fluid. Weigh yourself at the same time of day and in the same kind of clothes. Ideally, weigh yourself first thing in the morning after you empty your bladder, but before you eat breakfast. -Please call your physician if your weight goes up by more than 2 pounds in 1 day or 5 pounds in 1 week. This can be a sign that you are retaining more fluid than you should be. -Please call your primary care provider's office upon discharge to schedule a hospital follow up within 1 week. -For any concerning signs or symptoms please call 911 or proceed to the nearest emergency department Discharge Orders/Prescriptions Prescriptions: New amoxicillin-pot clavulanate 875-125 mg tablet 1 tab PO BID 4 Days Qty: 8 0RF metoprolol tartrate 25 mg Tablet 12.5 mg PO BID 30 Days Qty: 30 0RF Continued losartan 25 mg tablet 25 mg PO DAILY Qty: 90 3RF amlodipine 2.5 mg tablet 2.5 mg PO DAILY latanoprost 0.005 % drops 1 drp ophthalmic (eye) QHS furosemide [Lasix] 20 mg tablet 40 mg PO DAILY Eliquis 2.5 mg tablet 2.5 mg PO BID Qty: 180 3RF levothyroxine 75 mcg tablet 75 mcg PO DAILY Qty: 90 3RF Discontinued carvedilol 6.25 mg tablet 6.25 mg PO BID carvedilol 3.125 mg tablet 3.125 mg PO DAILY Qty: 90 3RF No Action (DME) handicap placard See Rx Instructions .Route .MEDSUPPLY Qty: 1 0RF Rx Instructions: As directed Exp 12/05/2028 Referrals / Follow Up: Taisha Doyle NP-C [Primary Care Provider] - 12/29/24 2:30 pm Disposition Disposition (needs filled in before D/C Order can be placed): Home, Self Care Charges/Coding Visit Charges Inpatient E&M: 45050 Disch Hosp >30min
[2024-12-23 14:14] VITALS: PULSE 100
[2024-12-23] MEDS: Metoprolol Tartrate 25 MG Tablet 12.5 MG PO (14:14)
[2024-12-23 14:18] VITALS: BP 148/76; PULSE 100; RESP 17; TEMP 36.6; O2SAT 95
--- NOTE | 2024-12-23 14:43 | CASEMGMT ---
Patient has order for discharge. Patient ambulating 180 ft contact guard with therapy. RN CM in to discuss needs at discharge. Patient declines need for C or outpatient therapy at discharge and states she will walk at home. Patient declines needs or help at discharge. Patient had no further questions or concerns.
[2024-12-23 15:20] VITALS: BP 144/76; PULSE 111; RESP 17; TEMP 36.7
--- NOTE | 2024-12-23 15:53 | PHA.DC.MC.R ---
Pharmacy [facility] has performed discharge medication reconciliation and counseling for this patient. 1. METOPROLOL TARTRATE 12.5MG PO BID 2. STOP CARVEDILOL 3. AUGMENTIN 875MG PO BID X 4 DAYS The patient's discharge medication list was reviewed for discrepancies and discrepancies were resolved. The patient was counseled on the following discharge medications and changes in medications for homegoing were reviewed. The Reason for Use, instructions for use, and potential side effects were reviewed for all new medications. The patient's questions regarding all of their medications were answered. The patient was able to verbally demonstrate an understanding of their discharge medications. Medications at Discharge Home Medications losartan 25 mg tablet 25 mg PO DAILY blood pressure #90 tabs 03/25/24 handicap placard #1 ea 06/02/24 apixaban 2.5 mg tablet (Eliquis) 2.5 mg PO BID blood thinner #180 tabs 07/15/24 levothyroxine 75 mcg tablet 75 mcg PO DAILY thyroid #90 tabs 07/15/24 amlodipine 2.5 mg tablet 2.5 mg PO DAILY blood pressure 12/20/24 furosemide 20 mg tablet (Lasix) 40 mg PO DAILY edema 12/20/24 latanoprost 0.005 % eye drops 1 drp ophthalmic (eye) QHS glaucoma 12/20/24 amoxicillin 875 mg-potassium clavulanate 125 mg tablet 1 tab PO BID 4 days #8 tabs 12/23/24 metoprolol tartrate 25 mg tablet 12.5 mg (1/2 x 25 mg) PO BID 30 days #30 tabs 12/23/24
== END 2024-12-23 18:00 | disposition home or self-care (01) | DRG 194 ==
LOC: ED 18:24 → PCU 19:39
PROVIDERS: Admitting Provider Student in an Organized Health Care Education/Training Program; Emergency Provider Emergency Medicine; PCP Nurse Practitioner Family; Visit Provider Internal Medicine
DX: J18.9 Pneumonia, unspecified organism (principal); I50.32 Chronic diastolic (congestive) heart failure; E03.9 Hypothyroidism, unspecified; Z66 Do not resuscitate; I11.0 Hypertensive heart disease with heart failure; I48.0 Paroxysmal atrial fibrillation; I10 Essential (primary) hypertension; E86.0 Dehydration; I25.10 Atherosclerotic heart disease of native coronary artery without angina pectoris; R09.02 Hypoxemia; R55 Syncope and collapse; R60.0 Localized edema; Z79.01 Long term (current) use of anticoagulants; Z79.890 Hormone replacement therapy; Z79.899 Other long term (current) drug therapy
CPT/HCPCS: 36415; 71045; 80048; 83735; 83880; 84484; 85025; 85027; 87070; 87205; 87449; 87631; 87633; 93005; 93306; 94640; 97162; 97166; 97530; 97535; 99285; A4216; J0696; J1938

== ENCOUNTER → 2025-01-19 | Outpatient (CLI) | payer MEDICARE, SELFPAY | END | disposition home or self-care (01) | PROVIDERS: PCP Nurse Practitioner Family; Referring Provider Physician Assistant Medical; Visit Provider Physician Assistant Medical | DX: I48.0 Paroxysmal atrial fibrillation (principal) | CPT/HCPCS: 93225; 93226 ==